=== PATIENT | female | born 1955 | race Caucasian/White ===

== ENCOUNTER 2017-03-26 14:22 | Inpatient (IN) | payer MEDICARE ==
[~2017-03-26] VITALS: Ht 172.7 cm; Wt 82.3 kg
[2017-03-26 14:24] VITALS: BP 126/80; PULSE 83; RESP 16; TEMP 98.8; O2SAT 97
--- NOTE | 2017-03-26 14:35 | PD ---
Physical Exam Time Seen by Provider: 14:32 Narrative 61 y/o female presents for evaluation of L foot pain for 2 weeks, seen by her coater operator in [place] and sent here. Told to come here to be evaluated by Dr. Kessler for "poor circulation." Vital signs reviewed. Seen at triage desk. Awaiting bed placement. Data Data Last Documented VS Vital Signs Date Time Temp Pulse Resp B/P Pulse Ox O2 Delivery O2 Flow Rate FiO2 03/26/17 14:24 98.8 83 16 126/80 97 MDM Medical Record Reviewed: Yes Supervised Visit with JG: Yovani Comer March 26, 2017 14:35
[2017-03-26] MEDS ORDERED: SITA50 PO (15:20)
[2017-03-26] MEDS ORDERED: PROM25TA5 PO (15:29)
[2017-03-26] MEDS ORDERED: JANU50TA8 PO (15:29)
[2017-03-26] MEDS ORDERED: GABA600T PO (15:29)
[2017-03-26] MEDS ORDERED: SODIUM CHLORIDE 0.9% FLUSH 10 ML FLUSH IVF PRN (15:30)
--- NOTE | 2017-03-26 15:37 | PD ---
HPI Chief Complaint: Skin Problem Time Seen by Provider: 15:12 Travel History International Travel<30 days: No Contact w/Intl Traveler<30days: No Traveled to known affect area: No History of Present Illness HPI Patient comes in at the advice of her private inquiry agent in [place] for evaluation left foot wound has been getting progressively worse over the past couple weeks. Patient states she is having pressure-like pain in her toes and her left heel. Pain making it difficult for her to walk. Denies any radiation of the pain. Patient states that her vascular surgeon told her that the next step for her would be amputation patient is wanting to avoid this. Patient was sent here for evaluation by Dr. Kessler. Denies any fevers, nausea, vomiting, diarrhea, chest pain, shortness of breath, or abdominal pain. Patient states she's been using Neosporin and antifungal meds with no improvement of her symptoms. PFSH Past Medical History Anxiety: Yes Cardiac Catheterization: Yes (card stent) Diabetes: Yes Patient Takes Glucophage: No Endocrine: Yes Medical other: Yes (2 strokes) Neurologic: Yes ?: Not Tubal Ligation: Yes Past Surgical History Abdominal Surgery: Yes (gallbladder removed) Section: Yes Other Surgery: Yes (thyroid sx) Social History Alcohol Use: No Tobacco Use: No Substance Use: No Allergies-Medications (Allergen,Severity, Reaction): Coded Allergies: Demerol (Verified Allergy, Severe, VOMITING, 03/26/17) Morphine (Verified Allergy, Severe, VOMITING, 03/26/17) Percocet (Verified Allergy, Severe, RASH, 03/26/17) Vicodin (Verified Allergy, Severe, VOMITING, 03/26/17) Reported Meds & Prescriptions Reported Meds & Active Scripts Active Reported Tramadol Hydrochloride (Tramadol HCl) 50 Mg Tab 50 Mg PO Q6-8HRS Iron (Ferrous Sulfate) 325 Mg Tab 324 Mg PO BID Take after a meal. Carvedilol 3.125 Mg Tab 3.125 Mg PO BID Glimepiride 2 Mg Tab 2 Mg PO BID Take with breakfast or first main meal Lisinopril-Hctz 10-12.5 Mg Tab 1 Tab PO DAILY Escitalopram (Escitalopram Oxalate) 20 Mg Tab 20 Mg PO DAILY Warfarin 7.5 Mg Tab 7.5 Mg PO DAILY Atorvastatin (Atorvastatin Calcium) 40 Mg Tab 40 Mg PO HS Pantoprazole (Pantoprazole Sodium) 40 Mg Tab 40 Mg PO DAILY Phenergan (Promethazine HCl) 25 Mg Tab 25 Mg PO DAILY Gabapentin 600 Mg Tab 600 Mg PO TID Janumet (Sitagliptin-Metformin) 50-1,000 Mg Tab 1 Tab PO BID Review of Systems Except as stated in HPI: all other systems reviewed are Neg Physical Exam Narrative GENERAL: Well-developed, overly nourished, in no acute distress, and non-ill appearing. SKIN: Erythematous over left great toe, second and third digit. He reports tenderness to palpation. There is no crepitus proximal forearm. There is scant drainage noted. Decreased capillary refill bilateral toes. Decreased dorsal pulses left using Doppler. HEAD: Atraumatic. Normocephalic. EYES: Pupils equal and round. EOMI. No scleral icterus. No injection or drainage. ENT: No nasal bleeding or discharge. Mucous membranes pink and moist. NECK: Trachea midline. Supple. No nuclear rigidity. RESPIRATORY: No accessory muscle use. No respiratory distress. MUSCULOSKELETAL: No obvious deformities. No clubbing. No cyanosis. No edema. Full range of motion. NEUROLOGICAL: Awake and alert. No obvious cranial nerve deficits. Motor grossly within normal limits. Normal speech. PSYCHIATRIC: Appropriate mood and affect; insight and judgment normal. Data Data Last Documented VS Vital Signs Date Time Temp Pulse Resp B/P Pulse Ox O2 Delivery O2 Flow Rate FiO2 03/26/17 16:18 96 Room Air 03/26/17 14:24 98.8 83 16 126/80 Orders Electrocardiogram (03/26/17 15:26) Complete Blood Count With Diff (03/26/17 15:26) Comprehensive Metabolic Panel (03/26/17 15:26) Magnesium (Mg) (03/26/17 15:26) Prothrombin Time / Inr (Pt) (03/26/17 15:26) Act Partial Throm Time (Ptt) (03/26/17 15:26) Chest, Single Ap (03/26/17 15:26) Ecg Monitoring (03/26/17 15:26) Iv Access Insert/Monitor (03/26/17 15:26) Oximetry (03/26/17 15:26) Oxygen Administration (03/26/17 15:26) Sodium Chloride 0.9% Flush (Ns Flush) (03/26/17 15:30) Wound Culture And Gram Stain (03/26/17 15:33) Consult Vascular Surgery (03/26/17 ) (Hub Use Only)Inp Phy Cons/Ref (03/26/17 ) Arterial Segmt Dopp Ltd Brigitte (03/26/17 ) Admit Order (Ed Use Only) (03/26/17 17:11) Us Venous Mapping Low Ext Bila (03/26/17 ) Us Venous Mapping Up Ext Bilat (03/26/17 ) Us Leg Venous Doppler Bilat (03/26/17 ) Us Arm Venous Doppler Bilat (03/26/17 ) Labs Laboratory Tests Test 03/26/17 16:30 White Blood Count 9.4 TH/MM3 Red Blood Count 4.67 MIL/MM3 Hemoglobin 10.3 GM/DL Hematocrit 32.3 % Mean Corpuscular Volume 69.1 FL Mean Corpuscular Hemoglobin 22.1 PG Mean Corpuscular Hemoglobin 32.0 % Concent Red Cell Distribution Width 20.3 % Platelet Count 367 TH/MM3 Mean Platelet Volume 10.3 FL Neutrophils (%) (Auto) 63.9 % Lymphocytes (%) (Auto) 24.6 % Monocytes (%) (Auto) 8.7 % Eosinophils (%) (Auto) 1.6 % Basophils (%) (Auto) 1.2 % Neutrophils # (Auto) 6.0 TH/MM3 Lymphocytes # (Auto) 2.3 TH/MM3 Monocytes # (Auto) 0.8 TH/MM3 Eosinophils # (Auto) 0.1 TH/MM3 Basophils # (Auto) 0.1 TH/MM3 CBC Comment AUTO DIFF Prothrombin Time 13.1 SEC Prothromb Time International 1.2 RATIO Ratio Activated Partial 27.1 SEC Thromboplast Time Sodium Level 138 MEQ/L Potassium Level 3.9 MEQ/L Chloride Level 102 MEQ/L Carbon Dioxide Level 28.5 MEQ/L Anion Gap 8 MEQ/L Blood Urea Nitrogen 11 MG/DL Creatinine 1.07 MG/DL Estimat Glomerular Filtration 52 ML/MIN Rate Random Glucose 84 MG/DL Calcium Level 8.7 MG/DL Magnesium Level 2.3 MG/DL Total Bilirubin 0.3 MG/DL Aspartate Amino Transf 14 U/L (AST/SGOT) Alanine Aminotransferase 14 U/L (ALT/SGPT) Alkaline Phosphatase 101 U/L Total Protein 7.3 GM/DL Albumin 3.1 GM/DL MDM Medical Decision Making Medical Screen Exam Complete: Yes Emergency Medical Condition: Yes Interpretation(s) EKG reviewed by Dr. Marin shows sinus rhythm with ventricular rate of 65. No STEMI. Differential Diagnosis Arterial occlusion, PAD, wound check, wound infection, other Narrative Course Patient was seen exam. Discussed patient with Dr. Kessler. Initial laboratory and radiological studies were obtained and reviewed. Discussed patient with Dr. Marin, who is in agreement with plan of care and disposition. Discussed all findings and plan care of patient, who was agreeable for admission. All questions were answered. Patient was stable throughout her ER stay. Physician Communication Physician Communication [address] Kessler, states he'll evaluate patient in the emergency department. 1550 Dr. Kessler evaluated patient recommends and patient admitted to medicine, nothing by mouth after midnight, and for Angiocath tomorrow. [address] Jason, who is agreeable to admit the patient. Diagnosis Primary Impression: PAD (peripheral artery disease) Admitting Information Admitting Physician Requests: Admit Condition: Stable Wojciech Bradford March 26, 2017 15:37
[2017-03-26] MEDS ORDERED: PANT40TA3 PO (15:46)
[2017-03-26] MEDS ORDERED: ATOR40TA16 PO (15:46)
[2017-03-26] MEDS ORDERED: ESCI20TA PO (15:54)
[2017-03-26] MEDS ORDERED: TRAM-492 PO (15:54)
[2017-03-26] MEDS ORDERED: LISI10TA PO (15:54)
[2017-03-26] MEDS ORDERED: CARV3.12 PO (15:54)
[2017-03-26] MEDS ORDERED: WARF-21 PO (15:54)
[2017-03-26] MEDS ORDERED: FERR1TAB36 PO (15:54)
[2017-03-26] MEDS ORDERED: GLIM2TAB PO (15:54)
[2017-03-26 16:18] VITALS: O2SAT 96
--- NOTE | 2017-03-26 16:21 | PD.VS.CON ---
History of Present Illness Chief Complaint: L LE wounds, PAD, pain Consult Requested by: ED History of Present Illness 61 yo lady w/ h/o PAD who initially had claudication years ago but that progressed and she underwent LLE bypass several years ago Over past weeks she has had worsening pain of her LEFT foot and wounds. She was seen by her vascular surgeon who recommended amputation and she went to her gyro compass tester, Dr. Omega Severino, who sent her to ED. She is able to ambulate but has pain with pressure on the heel. She denies fever or chills. Past/Family/Social History Past Medical History PAD CAD s/p stent and h/o [place] (she was told but no recollection) CVA 2005 with no residual deficit anemia when on plavix but had thorough GI w/u that was negative and now maintained on coumadin DM HTN neuropathy Past Surgical History thyroid resection eddie BTL KATERYNA L LE bypass with prosthetic Home Medications Reported Medications Tramadol HCl (Tramadol Hydrochloride)50 Mg Tab50 Mg PO q6-8hrs 03/26/17 Ferrous Sulfate (Iron)325 Mg Rny000 Mg PO BID Ref 0 Take after a meal. 03/26/17 Carvedilol 3.125 Mg Tab3.125 Mg PO BID #60 TAB Ref 0 03/26/17 Glimepiride 2 Mg Tab2 Mg PO BID #30 TAB Ref 0 Take with breakfast or first main meal 03/26/17 Lisinopril-Hctz 10-12.5 Mg Tab1 Tab PO DAILY #30 TAB Ref 0 03/26/17 Escitalopram 20 Mg Tab20 Mg PO DAILY #30 TAB Ref 0 03/26/17 Warfarin 7.5 Mg Tab7.5 Mg PO DAILY #30 TAB Ref 0 03/26/17 Atorvastatin 40 Mg Tab40 Mg PO HS #30 TAB Ref 0 03/26/17 Pantoprazole 40 Mg Tab40 Mg PO DAILY #30 TAB Ref 0 03/26/17 Promethazine (Phenergan)25 Mg Tab25 Mg PO DAILY #1 TAB Ref 0 03/26/17 Gabapentin 600 Mg Pqv466 Mg PO TID #90 TAB Ref 0 03/26/17 Sitagliptin-Metformin (Janumet)50-1,000 Mg Tab1 Tab PO BID #60 TAB Ref 0 03/26/17 Coded Allergies: Demerol (Verified Allergy, Severe, VOMITING, 03/26/17) Morphine (Verified Allergy, Severe, VOMITING, 03/26/17) Percocet (Verified Allergy, Severe, RASH, 03/26/17) Vicodin (Verified Allergy, Severe, VOMITING, 03/26/17) Review of Systems Constitutional: DENIES: Fever, Night Sweats Cardiovascular: COMPLAINS OF: Claudication, DENIES: Chest pain, Syncope Gastrointestinal: COMPLAINS OF: Diarrhea, Vomiting, DENIES: Abdominal pain Genitourinary: COMPLAINS OF: Urinary frequency Musculoskeletal: COMPLAINS OF: Joint pain Physical Exam Vitals/I&O Date Time Temp Pulse Resp B/P Pulse Ox O2 Delivery O2 Flow Rate FiO2 03/26/17 14:24 98.8 83 16 126/80 97 Neuro: awake, alert, no distress, JAQUEZ, CN intact HEENT: NC/AT Neck: no JVD; lower midline neck incision anterior healed Heart: reg rate, no M Lungs: clear B Abdomen: soft, NT; healed lower midline incision Vascular: weak L femoral pulse ? 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 I had a long talk with her and her and have outlined a plan for attempted limb salvage this hospitalization. 1. IVÁN, UE/LE vein survey - I will order these 2. NPO after MN with MIVF; plan for L LE angiogram tomorrow. I explained to the patient that this will purely be diagnostic 3. Reverse coumadin (check INR) until INR <1.5 4. Plan for L groin reconstruction and re-do distal bypass early next week 5. CV risk factor modification: ASA, statin, beta marisel; glucose control 6. Check A1c 7. Probably needs antibiotics for diabetic cellulitis Thanks for consulting me. The patient and her agree with treatment plan as outlined. Abram Kessler MD FACS visual merchandise manager [facility] - Heart and Vascular Surgery at [facility] [phone] Abram Kessler MD March 26, 2017 16:21
[2017-03-26 16:50] LABS: BASOPHIL # 0.1 TH/MM3 (0-0.2); BASOPHIL % 1.2 % (0.0-2.0); EOSINOPHIL # 0.1 TH/MM3 (0-0.4); EOSINOPHIL % 1.6 % (0.0-4.0); HEMATOCRIT 32.3 % (35.0-46.0); LYMPH % 24.6 % (9.0-44.0); LYMPHOCYTE # 2.3 TH/MM3 (1.0-4.8); MEAN CELL VOLUME 69.1 FL (80.0-100.0); MEAN CORPUSCULAR HEMOGLOBIN 22.1 PG (27.0-34.0); MONO % 8.7 % (0.0-8.0); NEUT % 63.9 % (16.0-70.0); PLATELET COUNT 367 TH/MM3 (150-450); RED BLOOD COUNT 4.67 MIL/MM3 (4.00-5.30); RED CELL DISTRIBUTION WIDTH 20.3 % (11.6-17.2); WHITE BLOOD COUNT 9.4 TH/MM3 (4.0-11.0)
[2017-03-26 17:00] LABS: HEMO FLAGS AUTO DIFF
[2017-03-26 17:01] LABS: APTT (PATIENT) 27.1 SEC (24.3-30.1); INTERNATIONAL NORMALIZED RATIO 1.2 RATIO; PROTHROMBIN TIME - PATIENT 13.1 SEC (9.8-11.6)
--- NOTE | 2017-03-26 17:05 | RADRPT ---
EXAM DATE/TIME: 03/26/2017 15:58 [facility] COMPARISON: No previous studies available for comparison. INDICATIONS : Evaluate for pneumonia, pneumothorax, or communicable diseases. MEDICAL HISTORY : None. SURGICAL HISTORY : Cardiac stent. ENCOUNTER: Initial ACUITY: 1 day PAIN SCORE: 0/10 LOCATION: Chest FINDINGS: There is a tiny pulmonary nodule within the right upper lung field which is indeterminate. Outpatien t CT of the chest may be helpful for further evaluation of this finding if clinically indicated. Min imal streakiness is noted within the left lung base consistent with possible atelectasis. The heart is normal. The pulmonary vascular pattern is also normal. CONCLUSION: 1. Tiny pulmonary nodule within the right upper lung field which is indeterminate. Outpatient CT of the chest may be helpful for further evaluation of the finding if clinically indicated. 2. Minimal streakiness within the left lung base consistent with possible atelectasis. 3. Degenerative changes throughout the thoracic spine. Abram Marie MD on March 26, 2017 at 16:58 Board Certified Radiologist. This report was verified electronically.
[2017-03-26 17:20] LABS: ANION GAP 8 MEQ/L (5-15); AST (GOT) 14 U/L (15-37); BICARBONATE 28.5 MEQ/L (21.0-32.0); BLOOD UREA NITROGEN 11 MG/DL (7-18); CHLORIDE 102 MEQ/L (98-107); GLOMERULAR FILTRATION RATE 52 ML/MIN (>89); MAGNESIUM 2.3 MG/DL (1.5-2.5); POTASSIUM 3.9 MEQ/L (3.5-5.1); SODIUM (NA) 138 MEQ/L (136-145)
[2017-03-26 17:23] LABS: ALKALINE PHOSPHATASE 101 U/L (45-117); ALT (GPT) 14 U/L (10-53); TOTAL BILIRUBIN ADULT 0.3 MG/DL (0.2-1.0)
[2017-03-26] MEDS ORDERED: SODIUM CHLORIDE 0.9% FLUSH 10 ML FLUSH IV FLUSH PRN (17:45)
[2017-03-26] MEDS ORDERED: ACETAMINOPHEN 325 MG TAB PO PRN (17:45)
--- NOTE | 2017-03-26 17:57 | HHI.HP ---
[facility] Non-Staff Admission Diagnosis severe peripheral artery disease Diagnoses: Chief Complaint: Left foot pain Travel History International Travel<30 Days: No Contact w/Intl Traveler <30 Da: No Traveled to Known Affected Are: No History of Present Illness 61-year-old female with a past medical history of PAD, CAD, CVA, DM, HTN, GERD, neuropathy, HLD, depression, PE, DVT who was sent by her voltage tester for PAD. The patient has an extensive history of left lower extremity vascular disease including stent placement and bypass. She states that she is having claudication symptoms in her left lower extremity for quite some time. She states that over the past 2 weeks she's been noticing skin peeling on her left foot. She complains of pain in her heel and the ball of her foot when she tries to bear weight. She has noticed some mild swelling and erythema on the sole of her foot. She denies any fevers or chills. Her voltage tester referred her to [place] to be evaluated by Dr. Kessler with vascular surgery. Vascular surgery is planning on angiogram tomorrow. She has peripheral neuropathy with numbness in her feet. The patient denies any lightheadedness, dizziness, vision changes, headache, chest pain, shortness of breath, nausea, vomiting, diarrhea, constipation, dysuria or urinary frequency. The patient has a history of DVT and was diagnosed with PE in November and has been on Coumadin. Review of Systems Except as stated in HPI: all other systems reviewed are Neg The patient had a recent hospitalization 2 weeks ago for UTI and diarrhea Past Family Social History Past Medical History Peripheral arterial disease Coronary artery disease CVA 2 in 2005 Hypertension Hyperlipidemia Peripheral neuropathy Depression GERD PE/DVT Past Surgical History Right thyroid removal Cholecystectomy Coronary stenting Left lower extremity bypass and stenting Hysterectomy Reported Medications Tramadol Hydrochloride (Tramadol HCl) 50 Mg Tab 50 Mg PO Q6-8HRS Iron (Ferrous Sulfate) 325 Mg Tab 324 Mg PO BID Take after a meal. Carvedilol 3.125 Mg Tab 3.125 Mg PO BID Glimepiride 2 Mg Tab 2 Mg PO BID Take with breakfast or first main meal Lisinopril-Hctz 10-12.5 Mg Tab 1 Tab PO DAILY Escitalopram (Escitalopram Oxalate) 20 Mg Tab 20 Mg PO DAILY Warfarin 7.5 Mg Tab 7.5 Mg PO DAILY Atorvastatin (Atorvastatin Calcium) 40 Mg Tab 40 Mg PO HS Pantoprazole (Pantoprazole Sodium) 40 Mg Tab 40 Mg PO DAILY Phenergan (Promethazine HCl) 25 Mg Tab 25 Mg PO DAILY Gabapentin 600 Mg Tab 600 Mg PO TID Janumet (Sitagliptin-Metformin) 50-1,000 Mg Tab 1 Tab PO BID Allergies: Coded Allergies: Demerol (Verified Allergy, Severe, VOMITING, 03/26/17) Morphine (Verified Allergy, Severe, VOMITING, 03/26/17) Percocet (Verified Allergy, Severe, RASH, 03/26/17) Vicodin (Verified Allergy, Severe, VOMITING, 03/26/17) Active Ordered Medications Current Medications Medications (Trade) Dose Ordered Sig/Mustapha Route Start Time Stop Time Status Last Admin (NS Flush) 2 ml UNSCH PRN IVF 03/26/17 15:30 (Lipitor) 40 mg HS PO 03/26/17 21:00 UNV (Coreg) 3.125 mg BID PO 03/26/17 21:00 UNV (Lexapro) 20 mg DAILY PO 03/27/17 09:00 UNV (Ferrous Sulfate) 324 mg BID PO 03/26/17 21:00 UNV (Neurontin) 600 mg TID PO 03/26/17 18:00 UNV (Amaryl) 2 mg BID PO 03/26/17 21:00 UNV (Protonix) 40 mg DAILY PO 03/27/17 09:00 UNV Non-Formulary Medication 1 tab 1 tab DAILY PO 03/27/17 09:00 UNV (NS 1000 ml Inj) 1,000 ml @ 70 mls/hr [id number] IV 03/26/17 17:43 UNV (NS Flush) 2 ml UNSCH PRN IV FLUSH 03/26/17 17:45 UNV (NS Flush) 2 ml BID IV FLUSH 03/26/17 21:00 UNV (Tylenol) 650 mg Q4H PRN PO 03/26/17 17:45 UNV (Tylenol) 650 mg Q6H PRN PO 03/26/17 17:45 UNV (Ultram) 50 mg Q6H PRN PO 03/26/17 17:45 UNV (Zofran Inj) 4 mg Q6H PRN IVP 03/26/17 18:00 UNV (Milk Of Magnesia Liq) 30 ml Q12H PRN PO 03/26/17 18:00 UNV (D50w (Vial) Inj) 25 ml UNSCH PRN IV PUSH 03/26/17 18:00 UNV (Glucagon Inj) 1 mg UNSCH PRN OTHER 03/26/17 18:00 UNV Family History Father had CABG and diabetes Social History Quit smoking in November after 40 years Denies any alcohol or drug use Physical Exam Vital Signs Vital Signs Date Time Temp Pulse Resp B/P Pulse Ox O2 Delivery O2 Flow Rate FiO2 03/26/17 16:18 96 Room Air 03/26/17 16:18 96 Room Air 03/26/17 14:24 98.8 83 16 126/80 97 Physical Exam GENERAL: Well-developed well-nourished. In no acute distress. SKIN: Warm and dry. Left foot with erythema of the toes with superficial skin peeling, erythema the heel. HEENT: Normocephalic. Pupils equal and round. Mucous membranes pink and moist. CARDIOVASCULAR: Regular rate and rhythm. No murmur appreciated. RESPIRATORY: No accessory muscle use. Clear to auscultation. Breath sounds equal bilaterally. GASTROINTESTINAL: Abdomen soft, non-tender, nondistended. Bowel sounds x4. MUSCULOSKELETAL: Left foot as above. Mild swelling of the left foot. Nonpalpable pulses in the left foot, foot warm. Faint DP pulse on the right. No clubbing or cyanosis. No edema. NEUROLOGICAL: Awake and alert. No focal neurological deficits. Moves upper and lower extremities spontaneously. Normal speech. PSYCHIATRIC: Appropriate mood and affect; insight and judgment normal. Laboratory Laboratory Tests Test 03/26/17 16:30 White Blood Count 9.4 Red Blood Count 4.67 Hemoglobin 10.3 Hematocrit 32.3 Mean Corpuscular Volume 69.1 Mean Corpuscular Hemoglobin 22.1 Mean Corpuscular Hemoglobin 32.0 Concent Red Cell Distribution Width 20.3 Platelet Count 367 Mean Platelet Volume 10.3 Neutrophils (%) (Auto) 63.9 Lymphocytes (%) (Auto) 24.6 Monocytes (%) (Auto) 8.7 Eosinophils (%) (Auto) 1.6 Basophils (%) (Auto) 1.2 Neutrophils # (Auto) 6.0 Lymphocytes # (Auto) 2.3 Monocytes # (Auto) 0.8 Eosinophils # (Auto) 0.1 Basophils # (Auto) 0.1 CBC Comment AUTO DIFF Prothrombin Time 13.1 Prothromb Time International 1.2 Ratio Activated Partial 27.1 Thromboplast Time Sodium Level 138 Potassium Level 3.9 Chloride Level 102 Carbon Dioxide Level 28.5 Anion Gap 8 Blood Urea Nitrogen 11 Creatinine 1.07 Estimat Glomerular Filtration 52 Rate Random Glucose 84 Calcium Level 8.7 Magnesium Level 2.3 Total Bilirubin 0.3 Aspartate Amino Transf 14 (AST/SGOT) Alanine Aminotransferase 14 (ALT/SGPT) Alkaline Phosphatase 101 Total Protein 7.3 Albumin 3.1 Date/Time Procedure Status Source Growth 03/26/17 15:46 Gram Stain Received Wound Toe Pending 03/26/17 15:46 Wound Culture Received Wound Toe Pending Result Diagram: 03/26/17 1630 03/26/17 1630 Imaging Last Impressions Chest X-Ray 03/26/17 1526 Signed Impressions: Service Date/Time: Sunday, March 26, 2017 15:58 - CONCLUSION: 1. Tiny pulmonary nodule within the right upper lung field which is indeterminate. Outpatient CT of the chest may be helpful for further evaluation of the finding if clinically indicated. 2. Minimal streakiness within the left lung base consistent with possible atelectasis. 3. Degenerative changes throughout the thoracic spine. Abram Marie MD Assessment and Plan Assessment and Plan 61-year-old female with a past medical history of PAD, CAD, CVA, DM, HTN, GERD, neuropathy, HLD, depression, PE, DVT who was sent by her voltage tester for PAD and vascular evaluation Acute on chronic LLE PAD: Vascular surgery consulted, appreciate recommendations and management. Nothing by mouth after midnight, IVF while nothing by mouth. Continue pain control with tramadol. Empiric IV Ancef for possible overlying cellulitis. Continue statin. History of recent PE on chronic anticoagulation: On Coumadin with subtherapeutic INR 1.2. Hold Coumadin for now for vascular procedure tomorrow. Heparin gtt for now until Coumadin is resumed. Diabetes mellitus: Chronic, stable. Hold home metformin. Monitor Accu-Cheks. Current with SSI. CAD/HTN: Chronic, stable. Continue home carvedilol, statin, lisinopril/HCTZ. Microcytic anemia: Likely chronic iron deficiency anemia on home iron supplementation, continue. Follow up CBC. Other chronic medical conditions include neuropathy, GERD, depression: Stable at this time and will continue home medications as indicated. DVT prophylaxis: Heparin GTT Discussed Condition With Patient with at bedside, ED RN, Dr. Jason Attending Statement 61 years old female History of PVD worsening foot pain and wounds dry wounds with mild erythema past week- sent over here by her voltage tester for vascular evaluation multiple comorbidities- HTN, DM, hyperlipidemia, CKI ;left foot - some dry wounds, mild cellulitis, warm Vascular surgery will be ff along with us- work up in progress IV antibiotics Faisal Flowers March 26, 2017 17:57 Kamini Jason MD March 26, 2017 19:14 Faisal Flwoers March 26, 2017 17:57 Kamini Jason MD March 26, 2017 19:14
[2017-03-26] MEDS ORDERED: GLUCAGON 1 MG/ML VIAL OTHER PRN (18:00)
[2017-03-26] MEDS ORDERED: ONDANSETRON HCL 4 MG/2 ML VIAL IVP PRN (18:00)
[2017-03-26] MEDS ORDERED: DEXTROSE 50% IN WATER 50 ML VIAL(D50) IV PUSH PRN (18:00)
[2017-03-26] MEDS ORDERED: MAGNESIUM HYDROXIDE SUSP 30 ML CUP PO PRN (18:00)
[2017-03-26 18:15] VITALS: BP 160/74; PULSE 68; RESP 16; O2SAT 97
[2017-03-26] MEDS: GABAPENTIN 300 MG CAP PO SCH (18:53)
[2017-03-26] MEDS: SODIUM CHLOR 0.9% 1000 ML INJ 1,000 ML IV SCH (18:53)
[2017-03-26] MEDS: HEPARIN-D5W INJ 250 ML IV SCH (18:54)
[2017-03-26 19:05] LABS: OVALOCYTES 1+ (NORMAL); SCAN/DIFF AUTO DIFF CONFIRMED
--- NOTE | 2017-03-26 19:55 | RADRPT ---
EXAM DATE/TIME: 03/26/2017 18:00 [facility] COMPARISON: No previous studies available for comparison. INDICATIONS : Arterial bypass. MEDICAL HISTORY : Stroke x2. Urinary frequency. Diabetes. Joint pain. Anxiety. SURGICAL HISTORY : Coronary artery stent. CABG Cholecystectomy. Cardiac cath. Tubal ligation. section. Thyroid surgery. ENCOUNTER: Initial ACUITY: 1 day PAIN SCORE: 5/10 LOCATION: Bilateral leg. GREATER SAPHENOUS VEIN THIGH: PROXIMAL: Right 6 mm Left Non-visualized MID: Right 3 mm Left Non-visualized DISTAL: Right 2 mm Left Non-visualized CALF: PROXIMAL: Right 2 mm Left Non-visualized MID: Right 3 mm Left Non-visualized DISTAL: Right 3 mm Left Non-visualized FINDINGS: The venous system of the lower extremities are patent by color Doppler imaging. Measurements of the leg veins (in mm) are listed above. CONCLUSION: Venous mapping study as described above. Mukesh Mike MD on March 26, 2017 at 19:53 Board Certified Radiologist. This report was verified electronically.
[2017-03-26 20:03] VITALS: BP 209/81; PULSE 70; RESP 18; O2SAT 99
[2017-03-26] MEDS: traMADol HCL 50 MG TAB PO PRN (20:03)
--- NOTE | 2017-03-26 20:08 | RADRPT ---
EXAM DATE/TIME: 03/26/2017 17:46 [facility] COMPARISON: No previous studies available for comparison. INDICATIONS : Arterial bypass. MEDICAL HISTORY : Stroke x2. Urinary frequency. Diabetes. Joint pain. Anxiety. SURGICAL HISTORY : Coronary artery stent.CABG Cholecystectomy.Cardiac cath. Tubal ligation. section. Thyroid agustin rgery. ENCOUNTER: Initial ACUITY: 1 day PAIN SCORE: 5/10 LOCATION: Bilateral leg. TECHNIQUE: Venous ultrasound of the left and right leg was performed from the inguinal ligament to the proximal calf. Real-time, color Doppler and spectral tracing, compression and augmentation techniques were us ed. FINDINGS: RIGHT LEG: There is normal compressibility of the deep venous system from the inguinal region to the proximal ca lf. No echogenic clot is seen in the lumen of the common femoral, femoral, popliteal, and posterior tibial veins. There is a normal response of the venous system to proximal and distal augmentation an d respiration. LEFT LEG: There is normal compressibility of the deep venous system from the inguinal region to the proximal ca lf. No echogenic clot is seen in the lumen of the common femoral, femoral, popliteal, and posterior tibial veins. There is a normal response of the venous system to proximal and distal augmentation an d respiration. An arterial graft is present and demonstrates no flow. CONCLUSION: 1. No evidence of deep venous thrombosis. 2. Left-sided arterial graft no flow. Mukesh Mike MD on March 26, 2017 at 20:05 Board Certified Radiologist. This report was verified electronically.
--- NOTE | 2017-03-26 20:09 | RADRPT ---
EXAM DATE/TIME: 03/26/2017 18:46 [facility] COMPARISON: No previous studies available for comparison. INDICATIONS : Arterial bypass. MEDICAL HISTORY : Stroke x2. Urinary frequency. Diabetes. Joint pain. Anxiety. SURGICAL HISTORY : Coronary artery stent. CABG Cholecystectomy. Cardiac cath. Tubal ligation. section. Thyroid surgery. ENCOUNTER: Initial ACUITY: 1 day PAIN SCORE: 5/10 LOCATION: Bilateral arm. CEPHALIC: ORIGIN: Right 2 mm Left 3 mm MID-ARM: Right 2 mm Left 2 mm ELBOW: Right 2 mm Left 2 mm FOREARM: Right 1 mm Left 1 mm WRIST: Right 1 mm Left 1 mm BASILIC: ORIGIN: Right 2 mm Left 3 mm MID-ARM: Right 2 mm Left 3 mm ELBOW: Right 2 mm Left 2 mm ARTERIES: BRACHIAL: Right 4 mm Left 4 mm ULNAR: Right 2 mm Left 2 mm RADIAL: Right 2 mm Left 1 mm VEINS: RADIAL: Right 1 mm Left 1 mm ULNAR: Right 1 mm Left 1 mm FINDINGS: The venous system of the upper extremities are patent by color Doppler imaging. Measurements of the arm veins (in mm) are listed above. CONCLUSION: Venous mapping study as described. Mukesh Mike MD on March 26, 2017 at 20:07 Board Certified Radiologist. This report was verified electronically.
--- NOTE | 2017-03-26 20:09 | RADRPT ---
EXAM DATE/TIME: 03/26/2017 18:30 [facility] COMPARISON: No previous studies available for comparison. INDICATIONS : Arterial bypass. MEDICAL HISTORY : Stroke x2. Urinary frequency. Diabetes. Joint pain. Anxiety. SURGICAL HISTORY : Coronary artery stent.CABG Cholecystectomy.Cardiac cath. Tubal ligation. section. Thyroid agustin rgery. ENCOUNTER: Initial ACUITY: 1 day PAIN SCORE: 5/10 LOCATION: Bilateral arm. FINDINGS: RIGHT UPPER EXTREMITY: There is spontaneous flow documented in the brachial, basilic, cephalic, axillary, and subclavian vei ns. The vessels are compressible and augmentation response is documented. No filling defects are se en. The flow is phasic with respiration. Direction of flow in the jugular vein is caudal. LEFT UPPER EXTREMITY: There is spontaneous flow documented in the brachial, basilic, cephalic, axillary, and subclavian vei ns. The vessels are compressible and augmentation response is documented. No filling defects are se en. The flow is phasic with respiration. Direction of flow in the jugular vein is caudal. CONCLUSION: Negative exam with no evidence of deep venous thrombosis. Mukesh Mike MD on March 26, 2017 at 20:06 Board Certified Radiologist. This report was verified electronically.
[2017-03-26] MEDS: ATORVASTATIN 40 MG TAB PO SCH (20:38)
[2017-03-26] MEDS: GLIMEPIRIDE 2 MG TAB PO SCH (20:38)
[2017-03-26] MEDS: CARVEDILOL 3.125 MG TAB PO SCH (20:38)
[2017-03-26] MEDS: FERROUS SULFATE 325 MG (65 MG ELEMENTAL IRON) TAB PO SCH (20:38)
[2017-03-26 20:42] VITALS: BP 160/68; PULSE 66; RESP 18; O2SAT 100
[2017-03-26] MEDS: INSULIN ASPART SUPPLEMENTAL SCALE SQ SCH (21:00)
[2017-03-26] MEDS: SODIUM CHLORIDE 0.9% FLUSH 10 ML FLUSH IV FLUSH SCH (21:10)
[2017-03-26 21:54] VITALS: BP 165/66; PULSE 61; RESP 18; TEMP 97.4; O2SAT 96
[2017-03-26 23:19] LABS: APTT (PATIENT) 30.1 SEC (24.3-30.1)
[2017-03-27] VITALS (8 sets, daily range): BP systolic 130–183; BP diastolic 60–82; PULSE 57–69; RESP 16–18; TEMP 96.5–97.9; O2SAT 94–97
[2017-03-27] MEDS: INSULIN ASPART SUPPLEMENTAL SCALE SQ SCH ×4 (06:02→21:00)
[2017-03-27 06:23] LABS: AUTOMATED NEUTROPHIL # 4.3 TH/MM3 (1.8-7.7); BASOPHIL # 0.1 TH/MM3 (0-0.2); EOSINOPHIL # 0.2 TH/MM3 (0-0.4); EOSINOPHIL % 2.1 % (0.0-4.0); HEMATOCRIT 27.8 % (35.0-46.0); LYMPH % 29.8 % (9.0-44.0); LYMPHOCYTE # 2.3 TH/MM3 (1.0-4.8); MEAN CELL VOLUME 70.4 FL (80.0-100.0); MEAN CORPUSCULAR HEMOGLOBIN 22.1 PG (27.0-34.0); MEAN CORPUSCULAR HGB CONC 31.4 % (32.0-36.0); MONO % 11.9 % (0.0-8.0); NEUT % 55.2 % (16.0-70.0); PLATELET COUNT 297 TH/MM3 (150-450); RED BLOOD COUNT 3.95 MIL/MM3 (4.00-5.30); WHITE BLOOD COUNT 7.8 TH/MM3 (4.0-11.0)
[2017-03-27 06:29] LABS: APTT (PATIENT) 28.2 SEC (24.3-30.1); INTERNATIONAL NORMALIZED RATIO 1.3 RATIO; PROTHROMBIN TIME - PATIENT 15.1 SEC (9.8-11.6)
[2017-03-27 06:39] LABS: HEMO FLAGS DIFF FINAL
[2017-03-27 06:59] LABS: ALKALINE PHOSPHATASE 83 U/L (45-117); ALT (GPT) 11 U/L (10-53); ANION GAP 6 MEQ/L (5-15); AST (GOT) 24 U/L (15-37); BICARBONATE 27.8 MEQ/L (21.0-32.0); BLOOD UREA NITROGEN 14 MG/DL (7-18); CHLORIDE 106 MEQ/L (98-107); GLOMERULAR FILTRATION RATE 51 ML/MIN (>89); SODIUM (NA) 140 MEQ/L (136-145); TOTAL BILIRUBIN ADULT 0.2 MG/DL (0.2-1.0)
[2017-03-27 07:08] LABS: POTASSIUM 4.4 MEQ/L (3.5-5.1)
[2017-03-27] MEDS: SODIUM CHLOR 0.9% 1000 ML INJ 1,000 ML IV SCH ×2 (08:48→23:06)
[2017-03-27] MEDS ORDERED: NON-FORMULARY DRUG (Lisinopril-Hctz 1 TAB) PO SCH (09:00)
[2017-03-27] MEDS: GLIMEPIRIDE 2 MG TAB PO SCH ×2 (09:00→17:32)
[2017-03-27 09:23] LABS: OVALOCYTES 1+ (NORMAL)
[2017-03-27 09:24] LABS: SCAN/DIFF AUTO DIFF CONFIRMED
[2017-03-27] MEDS: HYDROCHLOROTHIAZIDE 12.5 MG CAP PO SCH (10:27)
[2017-03-27] MEDS: CARVEDILOL 3.125 MG TAB PO SCH ×2 (10:27→21:39)
[2017-03-27] MEDS: LISINOPRIL 10 MG TAB PO SCH (10:27)
[2017-03-27] MEDS: PANTOPRAZOLE SOD 40 MG DELAYED RELEASE TAB PO SCH (10:27)
[2017-03-27] MEDS: GABAPENTIN 300 MG CAP PO SCH ×3 (10:27→17:32)
[2017-03-27] MEDS: ESCITALOPRAM OXALATE 20 MG TAB PO SCH (10:27)
[2017-03-27] MEDS: SODIUM CHLORIDE 0.9% FLUSH 10 ML FLUSH IV FLUSH SCH ×2 (10:28→21:00)
[2017-03-27] MEDS: FERROUS SULFATE 325 MG (65 MG ELEMENTAL IRON) TAB PO SCH ×2 (10:28→21:39)
[2017-03-27] MEDS: HEPARIN-D5W INJ 250 ML IV SCH ×2 (10:53→17:36)
[2017-03-27] MEDS ORDERED: IOHEXOL 350 MG/ML 100 ML BTL (for Cath Lab) OTHER ONE (11:58)
[2017-03-27] MEDS ORDERED: MIDAZOLAM HCL 2 MG/2 ML VIAL ONE (12:15)
--- NOTE | 2017-03-27 12:49 | HHI.PR ---
Immediate Post Op Note Procedure Date: March 27, 2017 Pre Op Diagnosis: PAD, L LE tissue loss, failed distal bypass Post Op Diagnosis: PAD, L LE tissue loss, failed distal bypass Surgeon: Abram Kessler Baker Apprentice(s): none Procedure: Aortogram w/ L LE angiogram Findings: 1. Occluded L CASH APPLICATION CLERK but patent profunda 2. Occluded L LE bypass 3. Occluded SFA/popliteal 4. Occluded PT/peroneal 5. Patent AT after genu Additional Information: Pt will be scheduled for L groin reconstruction (ilioprofunda bypass) amd LEFT leg bypass (fem-AT) Ok to resume heparin gtt at 1700 Complications: none apparent R groin sheath removed in lab intern Specimen(s) removed: none Estimated blood loss: 10mL Anesthesia: MAC Drains: None Patient to: Other (DOCU) Patient Condition: Good Date/Time of Procedure: SEE SURGICAL CARE RECORD Abram Kessler MD March 27, 2017 12:48
--- NOTE | 2017-03-27 12:50 | CATHPROC ---
[employer] HIS Report Study Information Study Number Scheduled Start Study Start [id number] 03/27/2017 Mar 27 2017 11:35AM Referring Institution Admit Source Facility Department 1 Emergency department [facility] - Physician Obstetrician Physician and Clinical Staff Initial Abram Kim Cold Press Loader Marcelo Huff,RN Other cathlab, cathlab Recorder Sam Guaman,RT(R) Scrub Jovi Lopez RCIS(BS) Procedures Performed Procedure Location (Site) Vessel Name Abdominal Angiogram Abd Aorta (A3) Aorta Abdominal Angiogram PELVIS Wire insertion Fem Art (right) Femoral Art Equipment Time Cold Press Loader Description Size Mfg Part Number Used/Scraped 11:43 ANGIO-DYNAMICS OMNI FLUSH 65CM CATHETER FR 4 [id number] Used 12:24 ANGIO-DYNAMICS OMNI FLUSH 65CM CATHETER FR 4 [id number] Used INTRODUCER SET, [id number]- 11:43 [employer] FR 5 Used MICROPUNCTURE, STIFFENED SC-NT-U-SST 11:43 The X Train INDUSTRIES PACK, CCL CUSTOM * [id number] Used 11:43 Nitronex MEDICAL PRESSURE TUBING 48" 48" [id number] Used 11:43 NAMIC TUBING, HIGH PRESSURE 20" 20" [id number] Used 12:26 NYCOMED OMNIPAQUE, 350 MG, 50ML 50ML [id number] Used 11:43 TERUMO MEDICAL SHEATH, FR4 TERUMO (10CM) FR 4 [id number] Used WIRE, ANGLED GLIDE .035 11:43 TERUMO MEDICAL/THAD 260CM [id number] Used 260CM History: Allergies Allergy Reaction Demerol VOMITING Morphine VOMITING Percocet RASH Vicodin VOMITING History: Risk Factors Hypertension Dyslipidemia Previous NH Previous Heart Failure Yes Yes No No Prior Valve Prior PCI Prior CABG Surgery No No No Cerebrovascular Peripheral Artery Chronic Lung On Dialysis Diabetes Disease Disease Disease No No Yes No No History: Stress Tests Stress or Imaging Studies Performed No History: Other Current Smoker No Medication Medication Total Dose (Bolus/Oral) Medication Total Dosage/Unit 1% XYLOCAINE 20 mL VERSED 2 mg Medications (Bolus/Oral) Medication Time Given Dosage/Unit Administered By Reason VERSED 03/27/2017 12:17:28 PM 2 mg Marcelo Huff 2 mg VERSHENRI given in lab by Marcelo Huff, RN via Peripheral IV. 1% XYLOCAINE 03/27/2017 12:20:21 PM 20 mL Abram Kessler 20 mL 1% XYLOCAINE given in lab by Abram Kessler in Right Groin via Subcutaneous. Initial Case Assessment Cardiovascular Edema Present Skin color Skin None Normal Warm Dry Circulatory - Right Pulses Dorsalis Pedis Posterior Tibial Femoral d d 2 Scale (0,1,2,3,4,d) Circulatory - Left Pulses Dorsalis Pedis Posterior Tibial Femoral d 0 0 Scale (0,1,2,3,4,d) Final Case Assessment Cardiovascular HR Rhythm 62 REG Edema Present Skin color Skin None Normal Warm Circulatory - Right Pulses Dorsalis Pedis Posterior Tibial Femoral d d 2 Scale (0,1,2,3,4,d) Circulatory - Left Pulses Dorsalis Pedis Posterior Tibial Femoral d 0 0 Scale (0,1,2,3,4,d) Circulatory - Lower Extremities Color Lower Right Normal Neurological State Oriented to time-place- Alert Moves all extremities person Respiration - General Respiration Rate SpO2 (%) (B/min) 20 99 Chronological Log Time Study Chronological Log 11:58:22 Patient arrived via Bed. 11:58:24 Patient Name, D.O.B, / Armband Verified By R.N. 11:58:25 Consent signed by the physician and the patient and verified by the Physician Obstetrician staff. 11:58:26 Pre-op and post- op instructions given; patient acknowledges understanding of instructions. 11:58:27 Verbal Stimulation=2 Physical Stimulation=2 Airway=2 Respiration=2 TOTAL=8. (0=absent, 1=li mited, 2=present) 11:58:37 MD arrived. 11:58:44 Presedation assessment performed by Physician Obstetrician RN. 11:59:01 Patient has been NPO for More than 6Hrs. 12:03:04 Raquel GUAMAN RECORDING Time Out. Correct patient, correct procedure,correct physician, ,power injector loaded with con trast with surgical team 12:05:57 present. Time Out Concurred by MD, individual staff and LIQUOR RUNNER in procedure Vitals capture started with the following parameters, Patient=Adult, Interval=5 min, Initial Pr mnhust=142 mmHg, 12:12:36 Deflation Rate=5 mmHg 12:13:55 HR=58 bpm, YQSO=613/85 mmhg, SpO2=98.0 %, Resp=21 B/min, Pain=0, Sheldon=10, Singh=2 Assessment: Initial Case, Edema=None, Color=Normal, Skin = Warm, Dry 12:17:11 Right Pulses: Omar Ped=d, Post Tib=d, Femoral=2 Left Pulses: Omar Ped=d, Post Tib=0, Femoral=0 12:17:28 2 mg VERSED given in lab by Marcelo Huff, RN via Peripheral IV. 12:18:23 HR=60 bpm, MPXV=652/92 mmhg, SpO2=99.0 %, Resp=14 B/min, Pain=0, Sheldon=10, Singh=2 12:19:14 Case Start 12:20:21 20 mL 1% XYLOCAINE given in lab by Abram Kessler in Right Groin via Subcutaneous. 12:22:39 Access site was Right Femoral Artery. with MP KIT 12:23:22 HR=62 bpm, PEOT=200/84 mmhg, SpO2=97.0 %, Resp=16 B/min, Pain=0, Sheldon=10, Singh=2 12:23:37 A WIRE, ANGLED GLIDE .035 260CM 260CM was inserted via Fem Art (right). 12:24:23 A SHEATH, FR4 TERUMO (10CM) FR 4 was advanced into the Fem Art (right) using the Percutaneo us technique. A OMNI FLUSH 65CM CATHETER FR 4 was advanced over a wire. OMNIPAQUE, 350 MG, 50ML 50ML was used for 12:25:23 injections. 12:26:22 Wire removed 12:27:02 Through a OMNI FLUSH 65CM CATHETER FR 4, The Abdominal Aorta was injected with 10 cc's of c ontrast. 12:27:37 Through a OMNI FLUSH 65CM CATHETER FR 4, The Abdominal Aorta was injected with 10 cc's of c ontrast. 12:28:05 A WIRE, ANGLED GLIDE .035 260CM 260CM was inserted via Fem Art (right). 12:28:19 HR=62 bpm, YDIK=990/81 mmhg, SpO1=595.0 %, Resp=15 B/min, Pain=0, Sheldon=10, Singh=2 12:29:40 Through a OMNI FLUSH 65CM CATHETER FR 4, The SFA (left) was injected with [address] 12:30:13 Through a OMNI FLUSH 65CM CATHETER FR 4, The Popliteal L (L10) was injected with 10 cc's of contrast. 12:30:34 Through a OMNI FLUSH 65CM CATHETER FR 4, The Peroneal (left) was injected with 12 cc's of c ontrast. 12:31:25 A WIRE, ANGLED GLIDE .035 260CM 260CM was inserted via Fem Art (right). 12:32:41 Catheter was removed Assessment: Final Case, HR=62 BPM, Rhythm=REG, Edema=None, Color=Normal, Skin = Warm Right Pulses: Omar Ped=d, Post Tib=d, Femoral=2 Left Pulses: Omar Ped=d, Post Tib=0, Femoral=0 12:32:50 Lower Right Extremities: Color=Normal Neurological: State=Alert, Ox3, JAQUEZ Respiration: Resp=20 B/min, SpO2=99 % 12:33:43 Catheter(s) removed without difficulty 12:33:44 Sheath removed; pressure applied to access site. Sergio LOPEZ 12:33:47 Case End 12:34:02 Sterile dressing applied to site 12:34:03 No case complications noted. 12:34:04 Cine recording checked. 12:34:07 HR=61 bpm, XWLZ=891/81 mmhg, SpO2=97.0 %, Resp=25 B/min, Pain=0, Sheldon=10, Singh=2 12:34:59 Bedside Report will be given. 12:35:18 Contrast Scanned 12:38:58 HR=62 bpm, HLON=837/86 mmhg, SpO2=96.0 %, Resp=20 B/min, Pain=0, Sheldon=10, Singh=2 12:43:24 HR=60 bpm, IHAW=865/87 mmhg, SpO2=97.0 %, Resp=22 B/min, Pain=0, Sheldon=10, Singh=2 12:48:23 HR=61 bpm, OXWG=527/84 mmhg, SpO2=96.0 %, Resp=18 B/min, Pain=0, Sheldon=10, Singh=2 12:49:49 HEMASTATIS ACHIEVED End Study - Contrast Media Used In Study Contrast Total Opened (mL) Total Used (mL) Total Wasted (mL) Omnipaque 25 25 0 End Study - Radiation Exposure Fluoro Time (minutes) 2.1 End Study - Sheaths Sheaths Pulled By Sheath Hold Time (min) Jovi Lopez End Study - Patient Disposition Complications Transferred To Interventional Outcome No Physician Obstetrician Holding No attempt made
--- NOTE | 2017-03-27 13:37 | MP ---
cc: RANDY KESSLER MD DATE OF SURGERY March 27, 2017 PREOPERATIVE DIAGNOSIS Left lower extremity critical limb ischemia, tissue loss and failed distal bypass. POSTOPERATIVE DIAGNOSIS Left lower extremity critical limb ischemia, tissue loss and failed distal bypass. PROCEDURE Aortogram with left lower extremity angiograms. ATTENDING SURGEON Randy Kessler MD ANESTHESIA Local with sedation. INDICATIONS Ms. Cao is a 61-year-old lady who has left lower extremity tissue loss and failed distal bypass. She was taken to the operating room for angiographic evaluation and treatment. There was no prior catheterization or angiogram available for my review. DESCRIPTION OF PROCEDURE Informed consent obtained was obtained from the patient. She was taken to the operating room and placed supine on the operating room table. An appropriate time-out was taken to identify the patient, the operative site and the planned procedure. The antibiotic administration was necessary as this is a clean procedure, without the planned implantation any foreign object. Everyone in the room agreed with the time-out and we proceeded. Her bilateral groins were prepped and draped and the right groin was anesthetized with 1% lidocaine. A 21-gauge micropuncture needle was used to access the right common femoral artery. This was exchanged using Seldinger technique for a micropuncture sheath through which a 0.025 Glidewire was introduced. The micropuncture sheath was exchanged for a 4-Czech sheath and a VCF catheter was placed over the wire into the sheath and the aortogram and pelvic arteriogram obtained. The Glidewire was reintroduced and navigated down to the left external iliac artery and the VCF catheter was advanced over this and left lower extremity arteriogram was obtained. The wire, catheter and sheath were removed and pressure used to obtain hemostasis. There were no complications. I was present and scrubbed for the entire procedure. INTERPRETATION OF IMAGES This patient has patent infrarenal aorta, common iliac arteries, hypogastric arteries and external iliac arteries. The patient's left common femoral artery is occluded as is the profunda. Christa-femoral collaterals off the distal external iliac artery constitute a profunda. The SFA is occluded and appears to have old stents. The popliteal artery is occluded. The posterior tibial artery and peroneal arteries are occluded. The anterior tibial artery is patent after the genu. MD HU Greene/SSB /12:54 PM /1:22 PM MTDMarco Antonio
[2017-03-27 15:35] LABS: APTT (PATIENT) 28.2 SEC (24.3-30.1)
--- NOTE | 2017-03-27 17:39 | HHI.PR ---
Subjective Remarks comfortable, mild discomfort foot Objective Vitals Vital Signs Date Time Temp Pulse Resp B/P Pulse Ox O2 Delivery O2 Flow Rate FiO2 03/27/17 16:14 97.4 65 18 172/76 97 03/27/17 14:35 97.4 65 18 177/69 97 03/27/17 13:38 94 21 03/27/17 13:07 92 Room Air 03/27/17 11:49 96.5 57 18 183/82 96 03/27/17 08:24 96.9 57 18 150/64 96 03/27/17 05:33 97.9 69 16 161/78 96 03/27/17 01:21 97.5 59 16 130/60 95 03/26/17 21:54 97.4 61 18 165/66 96 03/26/17 20:42 66 18 160/68 100 Room Air 03/26/17 20:03 70 18 99 Room Air 03/26/17 18:15 68 16 160/74 97 Room Air I/O 03/26/17 03/26/17 03/26/17 03/27/17 03/27/17 03/27/17 07:00 15:00 23:00 07:00 15:00 23:00 Intake Total 289 ml Output Total 250 ml Balance -250 ml 289 ml Intake IV Total 289 ml Output Urine Total 250 ml # Voids 1 1 1 # Bowel Movements 0 Result Diagram: 03/27/17 0557 03/27/17 0557 Imaging Last Impressions Chest X-Ray 03/26/17 1526 Signed Impressions: Service Date/Time: Sunday, March 26, 2017 15:58 - CONCLUSION: 1. Tiny pulmonary nodule within the right upper lung field which is indeterminate. Outpatient CT of the chest may be helpful for further evaluation of the finding if clinically indicated. 2. Minimal streakiness within the left lung base consistent with possible atelectasis. 3. Degenerative changes throughout the thoracic spine. Abram Marie MD Upper Extremity Ultrasound 03/26/17 0000 Signed Impressions: Service Date/Time: Sunday, March 26, 2017 18:30 - CONCLUSION: Negative exam with no evidence of deep venous thrombosis. Mukesh Mike MD Lower Extremity Ultrasound 03/26/17 0000 Signed Impressions: Service Date/Time: Sunday, March 26, 2017 17:46 - CONCLUSION: 1. No evidence of deep venous thrombosis. 2. Left-sided arterial graft no flow. Mukesh Mike MD Objective Remarks awake and alert, NAD anicteric lngs clear regular rhythm abdomen soft, nontender extremities- left foot mild erythema- improved, forefoot- mildly tender to touch ,dry wounds- heel moves all extremities equally Procedures /- aortogram with LE angiogram A/P Assessment and Plan 61 years old female History of PVD worsening foot pain and wounds dry wounds with mild erythema past week- sent over here by her nurse orthopedic for vascular evaluation multiple comorbidities- HTN, DM, hyperlipidemia, CKI Acute on chronic LLE PAD: Vascular surgery ff S/P aortogram with LLE angiogram Continue pain control with tramadol. Empiric IV Ancef for possible overlying cellulitis. Continue statin. On heparin drip restart at 1700 History of recent PE on chronic anticoagulation- Coumadin as OP. Heparin gtt for now until Coumadin is resumed. Diabetes mellitus: Chronic, stable. Hold home metformin- had angiogram done. Monitor Accu-Cheks. Current with SSI. CAD/HTN: Chronic, stable. Continue home carvedilol, statin, lisinopril/HCTZ.. BMP in am Acute Anemia on top of chronic Microcytic anemia: Likely chronic iron deficiency anemia on home iron supplementation, continue. H and H in am. Check iron studies no outward signs of bleeding. type and x 2 units standby. Other chronic medical conditions include neuropathy, GERD, depression: Stable at this time and will continue home medications as indicated. DVT prophylaxis: Heparin GTT Kamini Jason MD March 27, 2017 17:39
--- NOTE | 2017-03-27 18:32 | EKG ---
Date Performed: 03/26/2017 Time Performed: 16:23:21 PTAGE: 61 years EKG: Sinus rhythm MODERATE INTRAVENTRICULAR CONDUCTION DELAY NONSPECIFIC T-WAVE ABNORMALITY PROLONGED QT INTERVAL ABNO RMAL ECG NO PREVIOUS TRACING DOCTOR: Fabien Maguire Interpretating Date/Time 03/27/2017 18:29:07
[2017-03-27 19:25] LABS: FERRITIN 15 NG/ML (8-252); TRANSFERRIN IRON PROFILE 225 MG/DL (200-360)
[2017-03-27] MEDS: ATORVASTATIN 40 MG TAB PO SCH (21:39)
[2017-03-27] MEDS: traMADol HCL 50 MG TAB PO PRN (21:43)
[2017-03-28] VITALS (7 sets, daily range): BP systolic 119–176; BP diastolic 59–103; PULSE 55–64; RESP 18–20; TEMP 96.3–98.7; O2SAT 93–100
[2017-03-28 02:38] LABS: APTT (PATIENT) 29.5 SEC (24.3-30.1)
[2017-03-28] MEDS: INSULIN ASPART SUPPLEMENTAL SCALE SQ SCH ×4 (06:20→20:26)
[2017-03-28 08:31] LABS: APTT (PATIENT) 37.2 SEC (24.3-30.1)
[2017-03-28 08:39] LABS: HEMATOCRIT 30.9 % (35.0-46.0)
[2017-03-28 08:42] LABS: BICARBONATE 27.7 MEQ/L (21.0-32.0); POTASSIUM 3.9 MEQ/L (3.5-5.1)
[2017-03-28] MEDS: FERROUS SULFATE 325 MG (65 MG ELEMENTAL IRON) TAB PO SCH (08:45)
[2017-03-28] MEDS: ESCITALOPRAM OXALATE 20 MG TAB PO SCH (08:45)
[2017-03-28] MEDS: LISINOPRIL 10 MG TAB PO SCH (08:45)
[2017-03-28] MEDS: HYDROCHLOROTHIAZIDE 12.5 MG CAP PO SCH (08:45)
[2017-03-28] MEDS: GABAPENTIN 300 MG CAP PO SCH ×3 (08:45→17:15)
[2017-03-28] MEDS: PANTOPRAZOLE SOD 40 MG DELAYED RELEASE TAB PO SCH (08:45)
[2017-03-28] MEDS: GLIMEPIRIDE 2 MG TAB PO SCH ×2 (08:46→17:15)
[2017-03-28] MEDS: CARVEDILOL 3.125 MG TAB PO SCH ×2 (08:46→20:25)
[2017-03-28] MEDS: SODIUM CHLORIDE 0.9% FLUSH 10 ML FLUSH IV FLUSH SCH ×2 (08:46→20:25)
[2017-03-28] MEDS: traMADol HCL 50 MG TAB PO PRN ×2 (08:46→18:58)
--- NOTE | 2017-03-28 09:38 | HHI.PR ---
Subjective Remarks no complains of pain, fever or chills no foot pain complains Objective Vitals Vital Signs Date Time Temp Pulse Resp B/P Pulse Ox O2 Delivery O2 Flow Rate FiO2 03/28/17 07:52 98.1 60 18 139/69 96 03/28/17 04:00 97.1 61 20 119/59 96 03/28/17 00:00 97.5 63 20 176/103 93 03/27/17 20:18 97.0 64 18 176/78 95 03/27/17 16:14 97.4 65 18 172/76 97 03/27/17 14:35 97.4 65 18 177/69 97 03/27/17 13:38 94 21 03/27/17 13:07 92 Room Air 03/27/17 11:49 96.5 57 18 183/82 96 I/O 03/27/17 03/27/17 03/27/17 03/28/17 03/28/17 03/28/17 07:00 15:00 23:00 07:00 15:00 23:00 Intake Total 289 ml 1127 ml Output Total 400 ml Balance 289 ml 727 ml Intake Oral 240 ml IV Total 289 ml 700 ml Other 187 ml Output Urine Total 400 ml # Voids 1 1 2 # Bowel Movements 0 1 Result Diagram: 03/28/17 0715 03/28/17 0715 Imaging Last Impressions Chest X-Ray 03/26/17 1526 Signed Impressions: Service Date/Time: Sunday, March 26, 2017 15:58 - CONCLUSION: 1. Tiny pulmonary nodule within the right upper lung field which is indeterminate. Outpatient CT of the chest may be helpful for further evaluation of the finding if clinically indicated. 2. Minimal streakiness within the left lung base consistent with possible atelectasis. 3. Degenerative changes throughout the thoracic spine. Abram Marie MD Upper Extremity Ultrasound 03/26/17 0000 Signed Impressions: Service Date/Time: Sunday, March 26, 2017 18:30 - CONCLUSION: Negative exam with no evidence of deep venous thrombosis. Mukesh Mike MD Lower Extremity Ultrasound 03/26/17 0000 Signed Impressions: Service Date/Time: Sunday, March 26, 2017 17:46 - CONCLUSION: 1. No evidence of deep venous thrombosis. 2. Left-sided arterial graft no flow. Mukesh Mike MD Objective Remarks awake and alert, NAD anicteric lngs clear regular rhythm abdomen soft, nontender extremities- left foot erythema- almost resolved , heel- dry wounds/scab- no erythema moves all extremities equally Procedures 03/27- aortogram with LE angiogram A/P Assessment and Plan 61 years old female History of PVD worsening foot pain and wounds dry wounds with mild erythema past week- sent over here by her upper leather cutter for vascular evaluation multiple comorbidities- HTN, DM, hyperlipidemia, CKI Acute on chronic LLE PAD: Vascular surgery ff S/P aortogram with LLE angiogram Continue pain control with tramadol. Empiric IV Ancef for possible overlying cellulitis. Continue statin. On heparin drip History of recent PE on chronic anticoagulation- Coumadin as OP. Heparin gtt for now until Coumadin is resumed. Diabetes mellitus: Chronic, stable. Hold home metformin- had angiogram done. Monitor Accu-Cheks. Current with SSI. CAD/HTN: Chronic, stable. Continue home carvedilol, statin, lisinopril/HCTZ.. Acute Anemia on top of chronic Iron deficiency: Likely chronic iron deficiency anemia on home iron supplementation, continue. H and H in am. no outward signs of bleeding. type and x 2 units standby. Increase Iron to tid IV Iron for now while in house Other chronic medical conditions include neuropathy, GERD, depression: Stable at this time and will continue home medications as indicated. DVT prophylaxis: Heparin GTT Kamini Jason MD March 28, 2017 09:38
[2017-03-28] MEDS: IRON SUCROSE INJ 100 MG in SODIUM CHLORIDE 0.9% INJ 100 ML IV SCH (11:12)
[2017-03-28] MEDS ORDERED: FERROUS SULFATE 325 MG (65 MG ELEMENTAL IRON) TAB PO SCH (13:00)
--- NOTE | 2017-03-28 15:44 | RADRPT ---
EXAM DATE/TIME: 03/26/2017 00:00 [facility] COMPARISON: No previous studies available for comparison. INDICATIONS : Left foot Ulcer TECHNIQUE: Four-cuff ankle and brachial pressures were obtained. Pulse cuff waveform tracings of the ankles were recorded, and ankle-brachial indices were calculated. PRESSURES (mmHg): Brachial (arm): Right IV SITE Left 137 Ankle: Right 66 Left 21 IVÁN: Right 0.48 Left 0.15 TBI: Right 0.31 Left 0.00 TECH NOTE: Could not obtain left toe HUMBERTO Decker MR#: [id number] Exam DT/Desc[facility] BRACHIAL INDEX PULSED CUFF WAVEFORMS: Monophasic tracings on the right. Extremely low amplitude waveform at the left ankle. CONCLUSION: Significant PAD bilaterally, severe on the right, critical on the left. Damien Moralez MD on March 28, 2017 at 15:40 Board Certified Radiologist. This report was verified electronically.
[2017-03-28] MEDS: HEPARIN-D5W INJ 250 ML IV SCH (15:47)
[2017-03-28] MEDS ORDERED: WARFARIN SOD 10 MG TAB PO ONE (16:00)
[2017-03-28] MEDS: SODIUM CHLOR 0.9% 1000 ML INJ 1,000 ML IV SCH (17:16)
[2017-03-28] MEDS: ATORVASTATIN 40 MG TAB PO SCH (20:25)
[2017-03-28 23:37] LABS: APTT (PATIENT) 53.2 SEC (24.3-30.1)
[2017-03-29] VITALS (9 sets, daily range): BP systolic 105–167; BP diastolic 47–73; PULSE 55–93; RESP 18–20; TEMP 96.1–97.9; O2SAT 92–98
[2017-03-29] MEDS: INSULIN ASPART SUPPLEMENTAL SCALE SQ SCH ×4 (06:14→22:24)
[2017-03-29] MEDS: PANTOPRAZOLE SOD 40 MG DELAYED RELEASE TAB PO SCH (08:08)
[2017-03-29] MEDS: LISINOPRIL 10 MG TAB PO SCH (08:08)
[2017-03-29] MEDS: GLIMEPIRIDE 2 MG TAB PO SCH ×2 (08:08→18:23)
[2017-03-29] MEDS: GABAPENTIN 300 MG CAP PO SCH ×3 (08:08→18:24)
[2017-03-29] MEDS: HYDROCHLOROTHIAZIDE 12.5 MG CAP PO SCH (08:09)
[2017-03-29] MEDS: CARVEDILOL 3.125 MG TAB PO SCH ×2 (08:23→22:22)
[2017-03-29] MEDS: ESCITALOPRAM OXALATE 20 MG TAB PO SCH (08:23)
[2017-03-29 09:21] LABS: APTT (PATIENT) 37.1 SEC (24.3-30.1)
[2017-03-29 09:28] LABS: HEMATOCRIT 31.5 % (35.0-46.0); MEAN CELL VOLUME 70.1 FL (80.0-100.0); MEAN CORPUSCULAR HEMOGLOBIN 22.3 PG (27.0-34.0); MEAN CORPUSCULAR HGB CONC 31.8 % (32.0-36.0); PLATELET COUNT 328 TH/MM3 (150-450); RED BLOOD COUNT 4.49 MIL/MM3 (4.00-5.30); RED CELL DISTRIBUTION WIDTH 19.6 % (11.6-17.2); WHITE BLOOD COUNT 7.9 TH/MM3 (4.0-11.0)
[2017-03-29 09:31] LABS: REVIEW FLAG FINAL
[2017-03-29] MEDS: HEPARIN-D5W INJ 250 ML IV SCH (09:53)
[2017-03-29] MEDS: IRON SUCROSE INJ 100 MG in SODIUM CHLORIDE 0.9% INJ 100 ML IV SCH (11:00)
[2017-03-29] MEDS: traMADol HCL 50 MG TAB PO PRN ×2 (13:17→22:23)
--- NOTE | 2017-03-29 17:10 | HHI.PR ---
Subjective Remarks no diarrhea, fever or chills minimal pain- dry wounds on foot Objective Vitals Vital Signs Date Time Temp Pulse Resp B/P Pulse Ox O2 Delivery O2 Flow Rate FiO2 03/29/17 15:39 97.4 57 18 166/73 96 03/29/17 12:09 97.8 61 18 135/61 98 03/29/17 08:47 64 03/29/17 07:42 96.1 56 18 167/72 96 03/29/17 04:00 97.2 62 20 105/47 93 03/29/17 00:00 97.4 55 20 131/63 92 03/28/17 20:00 98.7 64 20 171/72 94 03/28/17 19:58 18 03/28/17 18:00 98 I/O 03/28/17 03/28/17 03/28/17 03/29/17 03/29/17 03/29/17 07:00 15:00 23:00 07:00 15:00 23:00 Intake Total 1127 ml 240 ml 916 ml 600 ml Output Total 400 ml Balance 727 ml 240 ml 916 ml 600 ml Intake Oral 240 ml 240 ml 240 ml 600 ml IV Total 700 ml 360 ml Other 187 ml 316 ml Output Urine Total 400 ml # Voids 2 2 # Bowel Movements 1 2 Result Diagram: 03/29/17 0852 03/28/17 0715 Imaging Last Impressions Chest X-Ray 03/26/17 1526 Signed Impressions: Service Date/Time: Sunday, March 26, 2017 15:58 - CONCLUSION: 1. Tiny pulmonary nodule within the right upper lung field which is indeterminate. Outpatient CT of the chest may be helpful for further evaluation of the finding if clinically indicated. 2. Minimal streakiness within the left lung base consistent with possible atelectasis. 3. Degenerative changes throughout the thoracic spine. Abram Marie MD Upper Extremity Ultrasound 03/26/17 0000 Signed Impressions: Service Date/Time: Sunday, March 26, 2017 18:30 - CONCLUSION: Negative exam with no evidence of deep venous thrombosis. Mukesh Mike MD Lower Extremity Ultrasound 03/26/17 0000 Signed Impressions: Service Date/Time: Sunday, March 26, 2017 17:46 - CONCLUSION: 1. No evidence of deep venous thrombosis. 2. Left-sided arterial graft no flow. Mukesh Mike MD Objective Remarks awake and alert, NAD anicteric lngs clear regular rhythm abdomen soft, nontender extremities- left foot erythema- mild , heel- dry wounds/scab- no erythema moves all extremities equally Procedures 03/27- aortogram with LE angiogram A/P Assessment and Plan 61 years old female History of PVD worsening foot pain and wounds dry wounds with mild erythema past week- sent over here by her ceramic restorer for vascular evaluation multiple comorbidities- HTN, DM, hyperlipidemia, CKI Acute on chronic LLE PAD: Vascular surgery ff S/P aortogram with LLE angiogram Continue pain control with tramadol. Empiric IV Ancef for possible overlying cellulitis. Continue statin. On heparin drip Vascular surgery ff- plan for procedure - next week History of recent PE on chronic anticoagulation- Coumadin as OP. Heparin gtt for now until Coumadin is resumed. Diabetes mellitus: Chronic, stable. Hold home metformin- had angiogram done. Monitor Accu-Cheks. Current with SSI. CAD/HTN: Chronic, stable. Continue home carvedilol, statin, lisinopril/HCTZ.. some elevated SBPs- increase Lisinorpil to 20 mg daily Acute Anemia on top of chronic Iron deficiency: Likely chronic iron deficiency anemia on home iron supplementation, continue. no outward signs of bleeding. type and x 2 units standby. Increase Iron to tid IV Iron x 3 Other chronic medical conditions include neuropathy, GERD, depression: Stable at this time and will continue home medications as indicated. DVT prophylaxis: Heparin GTT Kamini Jason MD March 29, 2017 17:10
[2017-03-29 20:23] LABS: APTT (PATIENT) 41.3 SEC (24.3-30.1)
[2017-03-29] MEDS: LACTIC ACID (AMMONIUM LACTATE) 12% LOTION 225 GM BTL TOPICAL SCH (21:00)
[2017-03-29] MEDS: ATORVASTATIN 40 MG TAB PO SCH (22:22)
[2017-03-29] MEDS: SODIUM CHLOR 0.9% 1000 ML INJ 1,000 ML IV SCH (22:27)
[2017-03-29] MEDS: SODIUM CHLORIDE 0.9% FLUSH 10 ML FLUSH IV FLUSH SCH ×2 (22:27→22:28)
[2017-03-30] VITALS (8 sets, daily range): BP systolic 121–196; BP diastolic 54–84; PULSE 61–94; RESP 18–20; TEMP 96–98.4; O2SAT 92–99
[2017-03-30] MEDS: HEPARIN-D5W INJ 250 ML IV SCH ×2 (03:13→17:18)
[2017-03-30 04:56] LABS: APTT (PATIENT) 61.5 SEC (24.3-30.1)
[2017-03-30] MEDS: INSULIN ASPART SUPPLEMENTAL SCALE SQ SCH ×4 (06:35→22:34)
[2017-03-30] MEDS ORDERED: LISINOPRIL 10 MG TAB PO SCH (09:00)
[2017-03-30] MEDS: LACTIC ACID (AMMONIUM LACTATE) 12% LOTION 225 GM BTL TOPICAL SCH ×2 (09:00→22:35)
[2017-03-30] MEDS: GABAPENTIN 300 MG CAP PO SCH ×3 (09:51→17:01)
[2017-03-30] MEDS: GLIMEPIRIDE 2 MG TAB PO SCH ×2 (09:52→17:01)
[2017-03-30] MEDS: LISINOPRIL 20 MG TAB PO SCH (09:52)
[2017-03-30] MEDS: ESCITALOPRAM OXALATE 20 MG TAB PO SCH (09:52)
[2017-03-30] MEDS: PANTOPRAZOLE SOD 40 MG DELAYED RELEASE TAB PO SCH (09:52)
[2017-03-30] MEDS: HYDROCHLOROTHIAZIDE 25 MG TAB PO SCH (09:52)
[2017-03-30] MEDS: CARVEDILOL 3.125 MG TAB PO SCH (09:52)
[2017-03-30] MEDS: SODIUM CHLORIDE 0.9% FLUSH 10 ML FLUSH IV FLUSH SCH ×2 (09:53→21:00)
[2017-03-30] MEDS: IRON SUCROSE INJ 100 MG in SODIUM CHLORIDE 0.9% INJ 100 ML IV SCH (11:59)
[2017-03-30 12:05] LABS: APTT (PATIENT) 73.9 SEC (24.3-30.1)
--- NOTE | 2017-03-30 15:42 | HHI.PR ---
Subjective Remarks minimal pain no nausea or vomiting, no diarrhea Objective Vitals Vital Signs Date Time Temp Pulse Resp B/P Pulse Ox O2 Delivery O2 Flow Rate FiO2 03/30/17 12:28 96.6 63 20 187/73 98 03/30/17 08:06 96.0 66 20 189/84 94 03/30/17 04:00 96.7 94 20 159/71 94 03/30/17 00:00 96.7 67 20 155/64 92 03/29/17 21:00 60 03/29/17 20:00 97.9 66 20 164/73 98 I/O 03/29/17 03/29/17 03/29/17 03/30/17 03/30/17 03/30/17 06:59 14:59 22:59 06:59 14:59 22:59 Intake Total 916 ml 600 ml 240 ml 1399 ml Balance 916 ml 600 ml 240 ml 1399 ml Intake Oral 240 ml 600 ml 240 ml 480 ml IV Total 360 ml 919 ml Other 316 ml # Voids 2 1 4 # Bowel Movements 2 1 4 Result Diagram: 03/29/17 0852 03/28/17 0715 Imaging Last Impressions Chest X-Ray 03/26/17 1526 Signed Impressions: Service Date/Time: Sunday, March 26, 2017 15:58 - CONCLUSION: 1. Tiny pulmonary nodule within the right upper lung field which is indeterminate. Outpatient CT of the chest may be helpful for further evaluation of the finding if clinically indicated. 2. Minimal streakiness within the left lung base consistent with possible atelectasis. 3. Degenerative changes throughout the thoracic spine. Abram Marie MD Upper Extremity Ultrasound 03/26/17 0000 Signed Impressions: Service Date/Time: Sunday, March 26, 2017 18:30 - CONCLUSION: Negative exam with no evidence of deep venous thrombosis. Mukesh Mike MD Lower Extremity Ultrasound 03/26/17 0000 Signed Impressions: Service Date/Time: Sunday, March 26, 2017 17:46 - CONCLUSION: 1. No evidence of deep venous thrombosis. 2. Left-sided arterial graft no flow. Mukesh Mike MD Objective Remarks awake and alert, NAD anicteric lngs clear regular rhythm abdomen soft, nontender extremities- left foot - toes cool to touch, erythema- mild , heel- dry wounds /scab- no erythema moves all extremities equally Procedures /- aortogram with LE angiogram A/P Assessment and Plan 61 years old female History of PVD worsening foot pain and wounds dry wounds with mild erythema past week- sent over here by her irrigator head for vascular evaluation multiple comorbidities- HTN, DM, hyperlipidemia, CKI Acute on chronic LLE PAD: Vascular surgery ff S/P aortogram with LLE angiogram Continue pain control with tramadol. Empiric IV Ancef for possible overlying cellulitis. Continue statin. On heparin drip Vascular surgery ff- plan for procedure - next week History of recent PE on chronic anticoagulation- Coumadin as OP. Heparin gtt for now until Coumadin is resumed. Diabetes mellitus: Chronic, stable. Hold home metformin- had angiogram done. Monitor Accu-Cheks. Current with SSI. CAD/HTN: Chronic, stable. Continue home carvedilol, statin, lisinopril/HCTZ.. some elevated SBPs- increase Lisinorpil to 20 mg daily Acute Anemia on top of chronic Iron deficiency: Likely chronic iron deficiency anemia on home iron supplementation, continue. no outward signs of bleeding. type and x 2 units standby. Increase Iron to tid S/P IV Iron x 3 Other chronic medical conditions include neuropathy, GERD, depression: Stable at this time and will continue home medications as indicated. DVT prophylaxis: Heparin GTT Kamini Jason MD March 30, 2017 15:41
[2017-03-30] MEDS: cloNIDine HCL 0.1 MG TAB PO PRN (15:43)
[2017-03-30] MEDS: SODIUM CHLOR 0.9% 1000 ML INJ 1,000 ML IV SCH (18:59)
[2017-03-30] MEDS: ATORVASTATIN 40 MG TAB PO SCH (22:34)
[2017-03-30] MEDS: CARVEDILOL 6.25 MG TAB PO SCH (22:34)
[2017-03-31] VITALS (8 sets, daily range): BP systolic 121–186; BP diastolic 56–74; PULSE 58–70; RESP 8–19; TEMP 96.7–99.1; O2SAT 96–97
[2017-03-31] MEDS: SODIUM CHLOR 0.9% 1000 ML INJ 1,000 ML IV SCH (01:34)
[2017-03-31] MEDS: INSULIN ASPART SUPPLEMENTAL SCALE SQ SCH ×4 (06:21→22:25)
[2017-03-31 07:34] LABS: APTT (PATIENT) 69.3 SEC (24.3-30.1)
[2017-03-31] MEDS: SODIUM CHLORIDE 0.9% FLUSH 10 ML FLUSH IV FLUSH SCH ×2 (08:50→20:07)
[2017-03-31] MEDS: GABAPENTIN 300 MG CAP PO SCH ×3 (08:51→16:31)
[2017-03-31] MEDS: PANTOPRAZOLE SOD 40 MG DELAYED RELEASE TAB PO SCH (08:52)
[2017-03-31] MEDS: LISINOPRIL 20 MG TAB PO SCH (08:52)
[2017-03-31] MEDS: CARVEDILOL 6.25 MG TAB PO SCH ×2 (08:52→20:07)
[2017-03-31] MEDS: GLIMEPIRIDE 2 MG TAB PO SCH ×2 (08:52→16:31)
[2017-03-31] MEDS: HYDROCHLOROTHIAZIDE 25 MG TAB PO SCH (08:53)
[2017-03-31] MEDS: ESCITALOPRAM OXALATE 20 MG TAB PO SCH (08:53)
[2017-03-31] MEDS: LACTIC ACID (AMMONIUM LACTATE) 12% LOTION 225 GM BTL TOPICAL SCH ×2 (08:55→20:08)
[2017-03-31] MEDS: HEPARIN-D5W INJ 250 ML IV SCH (09:04)
--- NOTE | 2017-03-31 11:06 | PD.VS.PN ---
Pre-operative Note Pre-operative diagnosis: L LE rest pain, failed distal bypass Planned procedure: L groin reconstruction, L LE bypass (fem-AT), excision of old bypass Interval History: Pt has pain controlled with pain meds and hep gtt. Remains motor intact and foot slowly less ruborous. Labs: Laboratory Results Test 03/27/17 03/28/17 03/29/17 06:04 07:15 08:52 Prothromb Time International 1.3 RATIO Ratio Sodium Level 142 MEQ/L (136-145) Potassium Level 3.9 MEQ/L (3.5-5.1) Chloride Level 106 MEQ/L (98-107) Carbon Dioxide Level 27.7 MEQ/L (21.0-32.0) Anion Gap 8 MEQ/L (5-15) Blood Urea Nitrogen 11 MG/DL (7-18) Random Glucose 138 MG/DL (74-106) Calcium Level 9.1 MG/DL (8.5-10.1) White Blood Count 7.9 TH/MM3 (4.0-11.0) Red Blood Count 4.49 MIL/MM3 (4.00-5.30) Hemoglobin 10.0 GM/DL (11.6-15.3) Hematocrit 31.5 % (35.0-46.0) Mean Corpuscular Volume 70.1 FL (80.0-100.0) Mean Corpuscular Hemoglobin 22.3 PG (27.0-34.0) Mean Corpuscular Hemoglobin 31.8 % Concent (32.0-36.0) Red Cell Distribution Width 19.6 % (11.6-17.2) Platelet Count 328 TH/MM3 (150-450) Mean Platelet Volume 9.7 FL (7.0-11.0) Blood: T&C 2U Imaging: Last Impressions Chest X-Ray 03/26/17 1526 Signed Impressions: Service Date/Time: Sunday, March 26, 2017 15:58 - CONCLUSION: 1. Tiny pulmonary nodule within the right upper lung field which is indeterminate. Outpatient CT of the chest may be helpful for further evaluation of the finding if clinically indicated. 2. Minimal streakiness within the left lung base consistent with possible atelectasis. 3. Degenerative changes throughout the thoracic spine. Abram Marie MD Upper Extremity Ultrasound 5/3/17 0000 Signed Impressions: Service Date/Time: Sunday, March 26, 2017 18:30 - CONCLUSION: Negative exam with no evidence of deep venous thrombosis. Mukesh Mike MD Lower Extremity Ultrasound 03/26/17 0000 Signed Impressions: Service Date/Time: Sunday, March 26, 2017 17:46 - CONCLUSION: 1. No evidence of deep venous thrombosis. 2. Left-sided arterial graft no flow. Mukesh Mike MD Orders: NPO after MN MIVF D/C hep gtt OCTOR Post-operative destination: PACU then [facility] Operative site marked: Yes Consent: Informed consent has been obtained from Nancy Cao. I have explained the procedure in detail and discussed the risks, benefits, and potential complications. All questions have been answered. Patient contact information: Abram Kessler MD March 31, 2017 11:06
[2017-03-31] MEDS: cloNIDine HCL 0.1 MG TAB PO PRN (13:05)
--- NOTE | 2017-03-31 13:13 | HHI.PR ---
Subjective Remarks no complains of chest pains or shortness of breath afebrile, no pain complaints leg looking forward to surgery tomorrow Objective Vitals Vital Signs Date Time Temp Pulse Resp B/P Pulse Ox O2 Delivery O2 Flow Rate FiO2 03/31/17 12:55 97.8 60 18 186/74 96 03/31/17 08:31 97.0 58 18 151/67 96 03/31/17 08:05 64 03/31/17 04:00 97.0 61 17 167/74 97 03/31/17 00:00 98.9 70 19 122/56 96 03/30/17 20:15 98.4 68 18 121/54 95 03/30/17 18:21 123/59 03/30/17 16:05 61 03/30/17 16:04 97.2 61 20 196/84 99 I/O 03/30/17 03/30/17 03/30/17 03/31/17 03/31/17 03/31/17 07:00 15:00 23:00 07:00 15:00 23:00 Intake Total 1399 ml 750 ml 900 ml Balance 1399 ml 750 ml 900 ml Intake Oral 480 ml 750 ml 900 ml IV Total 919 ml # Voids 1 4 1 4 1 # Bowel Movements 1 4 0 2 1 Result Diagram: 03/29/17 0852 03/28/17 0715 Imaging Last Impressions Chest X-Ray 03/26/17 1526 Signed Impressions: Service Date/Time: Sunday, March 26, 2017 15:58 - CONCLUSION: 1. Tiny pulmonary nodule within the right upper lung field which is indeterminate. Outpatient CT of the chest may be helpful for further evaluation of the finding if clinically indicated. 2. Minimal streakiness within the left lung base consistent with possible atelectasis. 3. Degenerative changes throughout the thoracic spine. Abram Marie MD Upper Extremity Ultrasound 03/26/17 0000 Signed Impressions: Service Date/Time: Sunday, March 26, 2017 18:30 - CONCLUSION: Negative exam with no evidence of deep venous thrombosis. Mukesh Mike MD Lower Extremity Ultrasound 03/26/17 0000 Signed Impressions: Service Date/Time: Sunday, March 26, 2017 17:46 - CONCLUSION: 1. No evidence of deep venous thrombosis. 2. Left-sided arterial graft no flow. Mukesh Mike MD Objective Remarks awake and alert, NAD anicteric lngs clear regular rhythm abdomen soft, nontender extremities- left foot -today warm to touch, + erythema, dry wounds moves all extremities equally Procedures /- aortogram with LE angiogram A/P Assessment and Plan 61 years old female History of PVD worsening foot pain and wounds dry wounds with mild erythema past week- sent over here by her director outcomes for vascular evaluation multiple comorbidities- HTN, DM, hyperlipidemia, CKI Acute on chronic LLE PAD: Vascular surgery ff S/P aortogram with LLE angiogram Continue pain control with tramadol. Empiric IV Ancef for possible overlying cellulitis. Continue statin. On heparin drip Vascular surgery ff- plan for procedure tomorrow History of recent PE on chronic anticoagulation- Coumadin as OP. Heparin gtt for now until Coumadin is resumed. Diabetes mellitus: Chronic, stable. Hold home metformin- had angiogram done. on glimepiride. readings elevated today restart home regimen post op. CAD/HTN: Chronic, stable. Continue home carvedilol, statin, lisinopril/HCTZ.. increase Lisinopril to 20 mg daily Acute Anemia on top of chronic Iron deficiency: Likely chronic iron deficiency anemia on home iron supplementation, continue. no outward signs of bleeding. type and x 2 units standby. Increase Iron to tid S/P IV Iron x 3 Other chronic medical conditions include neuropathy, GERD, depression: Stable at this time and will continue home medications as indicated. DVT prophylaxis: Heparin GTT Kamini Jason MD March 31, 2017 13:13
[2017-03-31] MEDS: ATORVASTATIN 40 MG TAB PO SCH (20:07)
[2017-03-31] MEDS: traMADol HCL 50 MG TAB PO PRN (20:25)
[2017-03-31] MEDS: LACTATED RINGER'S 1000 ML INJ 1,000 ML IV SCH (23:00)
[2017-04-01] VITALS (13 sets, daily range): BP systolic 124–154; BP diastolic 53–80; PULSE 53–72; RESP 18; TEMP 97–98.6; O2SAT 95–100
[2017-04-01] MEDS: HEPARIN-D5W INJ 250 ML IV SCH (02:49)
[2017-04-01] MEDS ORDERED: POVIDONE IODINE 5% (ANTISEPSIS KIT) 4 APPLICATIONS EACH NARE PRN (05:30)
[2017-04-01] MEDS ORDERED: METOPROLOL TARTRATE 25 MG TAB PO PRN (05:30)
[2017-04-01] MEDS ORDERED: CHLORHEXIDINE GLUCONATE 2 % 1 PACK (2 CLOTHS) TOPICAL PRN (05:30)
[2017-04-01] MEDS ORDERED: LACTATED RINGER'S 1000 ML IV PRN (05:30)
[2017-04-01] MEDS ORDERED: SODIUM CHLORID 0.9% 500 ML IV PRN (05:30)
[2017-04-01] MEDS: INSULIN ASPART SUPPLEMENTAL SCALE SQ SCH ×4 (06:21→21:00)
[2017-04-01] MEDS: GLIMEPIRIDE 2 MG TAB PO SCH ×2 (07:16→17:20)
[2017-04-01] MEDS: PANTOPRAZOLE SOD 40 MG DELAYED RELEASE TAB PO SCH (07:19)
[2017-04-01 07:23] LABS: APTT (PATIENT) 54.1 SEC (24.3-30.1)
[2017-04-01] MEDS: GABAPENTIN 300 MG CAP PO SCH ×2 (07:24→17:20)
[2017-04-01] MEDS: SODIUM CHLORIDE 0.9% FLUSH 10 ML FLUSH IV FLUSH SCH ×2 (07:26→21:04)
[2017-04-01] MEDS: CARVEDILOL 6.25 MG TAB PO SCH ×2 (07:27→21:04)
[2017-04-01] MEDS: LISINOPRIL 20 MG TAB PO SCH (07:27)
[2017-04-01] MEDS: HYDROCHLOROTHIAZIDE 25 MG TAB PO SCH (07:27)
[2017-04-01] MEDS: ESCITALOPRAM OXALATE 20 MG TAB PO SCH (07:27)
[2017-04-01] MEDS: LACTIC ACID (AMMONIUM LACTATE) 12% LOTION 225 GM BTL TOPICAL SCH ×2 (07:28→21:00)
[2017-04-01] MEDS ORDERED: THROMBIN (TOPICAL) 5,000 UNIT VIAL ONE (07:30)
[2017-04-01] MEDS ORDERED: HEPARIN SODIUM - SQ 10,000 UNITS/ML VIAL ONE (07:30)
[2017-04-01] MEDS ORDERED: GELFOAM SIZE 100 ONE (07:30)
[2017-04-01 07:35] LABS: HEMATOCRIT 24.8 % (35.0-46.0); MEAN CELL VOLUME 73.1 FL (80.0-100.0); MEAN CORPUSCULAR HEMOGLOBIN 22.8 PG (27.0-34.0); MEAN CORPUSCULAR HGB CONC 31.1 % (32.0-36.0); PLATELET COUNT 261 TH/MM3 (150-450); RED CELL DISTRIBUTION WIDTH 20.2 % (11.6-17.2); WHITE BLOOD COUNT 10.9 TH/MM3 (4.0-11.0)
[2017-04-01 07:38] LABS: REVIEW FLAG FINAL
--- NOTE | 2017-04-01 07:44 | HHI.PR ---
Subjective Remarks comfortable overnight, no pain excited and nervous at the same of the upcoming procedure this am Objective Vitals Vital Signs Date Time Temp Pulse Resp B/P Pulse Ox O2 Delivery O2 Flow Rate FiO2 04/01/17 04:00 97.0 56 18 154/60 95 04/01/17 00:00 98.3 56 18 124/53 97 03/31/17 20:09 99.1 59 16 143/59 96 03/31/17 20:00 59 03/31/17 16:39 96.7 65 8 121/59 97 03/31/17 12:55 97.8 60 18 186/74 96 03/31/17 08:31 97.0 58 18 151/67 96 03/31/17 08:05 64 I/O 03/31/17 03/31/17 03/31/17 04/01/17 04/01/17 04/01/17 07:00 15:00 23:00 07:00 15:00 23:00 Intake Total 900 ml 480 ml 1726 ml 451 ml Balance 900 ml 480 ml 1726 ml 451 ml Intake Oral 900 ml 480 ml IV Total 1726 ml 451 ml # Voids 4 4 4 2 # Bowel Movements 2 2 1 Result Diagram: 03/29/17 0852 03/28/17 0715 Imaging Last Impressions Chest X-Ray 03/26/17 1526 Signed Impressions: Service Date/Time: Sunday, March 26, 2017 15:58 - CONCLUSION: 1. Tiny pulmonary nodule within the right upper lung field which is indeterminate. Outpatient CT of the chest may be helpful for further evaluation of the finding if clinically indicated. 2. Minimal streakiness within the left lung base consistent with possible atelectasis. 3. Degenerative changes throughout the thoracic spine. Abram Marie MD Upper Extremity Ultrasound 03/26/17 0000 Signed Impressions: Service Date/Time: Sunday, March 26, 2017 18:30 - CONCLUSION: Negative exam with no evidence of deep venous thrombosis. Mukesh Mike MD Lower Extremity Ultrasound 03/26/17 0000 Signed Impressions: Service Date/Time: Sunday, March 26, 2017 17:46 - CONCLUSION: 1. No evidence of deep venous thrombosis. 2. Left-sided arterial graft no flow. Mukesh Mike MD Objective Remarks awake and alert, NAD anicteric lungs clear regular rhythm abdomen soft, nontender extremities- left foot - warm to touch, erythema much much improved dry scab, no drainage moves all extremities equally Procedures 5/- aortogram with LE angiogram A/P Assessment and Plan 61 years old female History of PVD worsening foot pain and wounds dry wounds with mild erythema past week- sent over here by her electrical solderer for vascular evaluation multiple comorbidities- HTN, DM, hyperlipidemia, CKI Acute on chronic LLE PAD: Vascular surgery ff S/P aortogram with LLE angiogram Continue pain control with tramadol. Empiric IV Ancef for possible overlying cellulitis. Continue statin. On heparin drip -off for procedyre Vascular surgery ff-- going for surgery this am- reconstruction and escision of old bypass History of recent PE on chronic anticoagulation- Coumadin as OP. Heparin gtt restart post procedure. coumadin post procedure Diabetes mellitus: Chronic, stable. Hold home metformin- had angiogram done. on glimepiride. restart home regimen post op. ff blood sugars CAD/HTN: Chronic, stable. - better readings carvedilol 6.25 mg po bid statin, HCTZ 12.5 daily Lisinopril to 20 mg daily-increased recently Acute Anemia on top of chronic Iron deficiency: Likely chronic iron deficiency anemia on home iron supplementation, continue. no outward signs of bleeding. type and x 2 units standby. Increase Iron to tid S/P IV Iron x 3 Other chronic medical conditions include neuropathy, GERD, depression: Stable at this time and will continue home medications as indicated. DVT prophylaxis: Heparin GTT off for procedure Kamini Jason MD April 01, 2017 07:44
[2017-04-01] MEDS ORDERED: HEPARIN SODIUM - IV 10,000 UNITS/10 ML VIAL ONE (08:06)
[2017-04-01] MEDS ORDERED: THROMBIN (TOPICAL) 20,000 UNIT SPRAY KIT ONE (08:06)
[2017-04-01] MEDS ORDERED: PROTAMINE SULFATE 50 MG/5 ML VIAL ONE (08:06)
[2017-04-01] MEDS ORDERED: VANCOMYCIN HCL 1000 MG VIAL ONE (08:18)
[2017-04-01 09:30] LABS: BLOOD GAS CARBOXYHEMOGLOBIN 2.4 % (0-4); BLOOD GAS HCO3 24 mmol/L (22-26); BLOOD GAS METHEMOGLOBIN 1.1 % (0-2); BLOOD GAS O2 HGB SATURATION 96 % (90-100); BLOOD GAS OXYGEN CONTENT 12.8 Vol % (12.0-20.0); BLOOD GAS PCO2 36 mmHg (38-42); BLOOD GAS PO2 190 mmHg (61-120); BLOOD GAS TOTAL HGB 9.2 G/DL (12.0-16.0); CRITICAL VALUE NO; DRAW SITE ART LINE; OXYGEN DEVICE SEE OR; STAT YES; TEMP CORR TO 98.6
[2017-04-01] MEDS ORDERED: THROMBIN (TOPICAL) 20,000 UNIT SPRAY KIT OTHER ONE (11:16)
[2017-04-01] MEDS ORDERED: PHENYLEPHRINE HCL 10 MG/ML VIAL IV ONE (12:00)
[2017-04-01] MEDS ORDERED: PROPOFOL 200 MG/20 ML AMP IV ONE (12:00)
[2017-04-01] MEDS ORDERED: ONDANSETRON HCL 4 MG/2 ML VIAL IV PUSH ONE (12:00)
[2017-04-01] MEDS ORDERED: SODIUM CHLORID 0.9% 500 ML INJ 500 ML IV ONE (12:00)
[2017-04-01] MEDS ORDERED: SODIUM CHLOR 0.9% 250 ML INJ 250 ML IV ONE (12:00)
[2017-04-01] MEDS ORDERED: NEOSTIGMINE 3 MG/3 ML SYR IV ONE (12:00)
[2017-04-01] MEDS ORDERED: ePHEDrine/NS 25 MG/5 ML SYR IV ONE (12:00)
[2017-04-01] MEDS ORDERED: DEXTROSE 5%-LACTATED RING INJ 1,000 ML IV ONE (12:00)
--- NOTE | 2017-04-01 12:00 | HHI.PR ---
Immediate Post Op Note Procedure Date: April 01, 2017 Pre Op Diagnosis: PAD, L LE tissue loss, failed distal bypass Post Op Diagnosis: PAD, L LE tissue loss, failed distal bypass Surgeon: Abram Kessler Skate Hop(s): Yvon Amaya Procedure: 1. L iliofemoral bypass with 8mm Dacron 2. L fem-AT bypass with cryo vein 3. Redo procedure 4. 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
[2017-04-01] MEDS ORDERED: MIDAZOLAM HCL 2 MG/2 ML VIAL ONE (12:09)
[2017-04-01] MEDS ORDERED: LACTATED RINGER'S 1000 ML INJ 1,000 ML IV SCH (12:10)
[2017-04-01] MEDS ORDERED: fentaNYL CITRATE 250 MCG/5 ML AMP ONE (12:10)
[2017-04-01] MEDS ORDERED: HYDROmorphone HCL PCA 6 MG/30 ML IV SCH (12:15)
[2017-04-01] MEDS ORDERED: NALOXONE HCL 0.4 MG/ML AMP IV PRN (12:15)
[2017-04-01 12:17] LABS: MEAN CORPUSCULAR HGB CONC 29.8 % (32.0-36.0)
[2017-04-01] MEDS ORDERED: *HYDROmorphone PF 1 MG VIAL PERIprocedural Use ONLY ONE ×2 (12:19→12:36)
[2017-04-01] MEDS ORDERED: ENOXAPARIN SODIUM 30 MG/0.3 ML SYRINGE SQ SCH (13:00)
[2017-04-01] MEDS: PCA - TOTAL MG DILAUDID DELIVERED PER SHIFT OTHER SCH ×2 (14:00→21:06)
[2017-04-01 19:21] LABS: HEMATOCRIT 27.5 % (35.0-46.0); MEAN CELL VOLUME 74.3 FL (80.0-100.0); MEAN CORPUSCULAR HEMOGLOBIN 22.1 PG (27.0-34.0); PLATELET COUNT 250 TH/MM3 (150-450); RED BLOOD COUNT 3.71 MIL/MM3 (4.00-5.30); RED CELL DISTRIBUTION WIDTH 20.4 % (11.6-17.2); WHITE BLOOD COUNT 13.9 TH/MM3 (4.0-11.0)
[2017-04-01 19:25] LABS: REVIEW FLAG FINAL
[2017-04-01 19:39] LABS: BICARBONATE 27.7 MEQ/L (21.0-32.0); POTASSIUM 4.2 MEQ/L (3.5-5.1)
[2017-04-01] MEDS: FAMOTIDINE 20 MG TAB PO SCH (21:04)
[2017-04-01] MEDS: ATORVASTATIN 40 MG TAB PO SCH (21:04)
[2017-04-01] MEDS: DOCUSATE SODIUM 100 MG CAP PO SCH (21:04)
[2017-04-02] VITALS (26 sets, daily range): BP systolic 125–156; BP diastolic 66–89; PULSE 62–85; RESP 16–20; TEMP 98–99.1; O2SAT 93–95
[2017-04-02] MEDS: LACTATED RINGER'S 1000 ML INJ 1,000 ML IV SCH (04:07)
[2017-04-02] MEDS: PCA - TOTAL MG DILAUDID DELIVERED PER SHIFT OTHER SCH ×3 (05:46→22:38)
[2017-04-02 06:15] LABS: HEMATOCRIT 24.8 % (35.0-46.0); MEAN CELL VOLUME 72.9 FL (80.0-100.0); MEAN CORPUSCULAR HEMOGLOBIN 22.7 PG (27.0-34.0); MEAN CORPUSCULAR HGB CONC 31.2 % (32.0-36.0); PLATELET COUNT 238 TH/MM3 (150-450); RED CELL DISTRIBUTION WIDTH 20.1 % (11.6-17.2)
[2017-04-02 06:31] LABS: APTT (PATIENT) 29.9 SEC (24.3-30.1)
[2017-04-02 06:36] LABS: REVIEW FLAG FINAL
[2017-04-02 06:37] LABS: BICARBONATE 28.6 MEQ/L (21.0-32.0)
[2017-04-02] MEDS: INSULIN ASPART SUPPLEMENTAL SCALE SQ SCH ×4 (07:00→21:00)
--- NOTE | 2017-04-02 07:05 | PD.VS.PN ---
Subjective POD #: 1 Procedure(s): L iliofem, fem-AT (cryo), excision of bypass, re-do bypass Subjective/Hospital Course Slightly nauseated this morning, but pain controlled. Foot feels good. Overall looks great. Objective Vitals/I&O Date Time Temp Pulse Resp B/P Pulse Ox O2 Delivery O2 Flow Rate FiO2 04/02/17 06:00 79 04/02/17 05:46 18 04/02/17 05:00 83 04/02/17 04:00 78 04/02/17 04:00 93 Nasal Cannula 2.00 04/02/17 04:00 99.1 77 20 138/71 93 04/02/17 03:00 71 04/02/17 02:00 85 04/02/17 01:00 64 04/02/17 00:00 95 Nasal Cannula 1.00 04/02/17 00:00 62 04/02/17 00:00 98.7 63 18 125/66 95 04/01/17 23:00 62 04/01/17 22:00 64 04/01/17 21:06 18 04/01/17 21:00 72 04/01/17 20:00 98.6 70 18 125/73 95 04/01/17 20:00 60 04/01/17 20:00 95 Nasal Cannula 1.00 04/01/17 19:00 58 04/01/17 18:00 60 04/01/17 17:00 64 04/01/17 16:00 68 04/01/17 15:00 98.0 69 126/80 96 04/01/17 15:00 62 04/01/17 14:30 97.8 67 12 146/65 99 Nasal Cannula 2 04/01/17 14:15 72 12 136/64 98 04/01/17 14:00 70 12 140/63 97 04/01/17 13:45 73 12 142/67 97 04/01/17 13:30 75 10 142/65 97 04/01/17 13:15 74 12 142/65 97 04/01/17 13:00 72 16 147/67 97 04/01/17 12:48 16 04/01/17 12:45 72 15 160/71 95 04/01/17 12:30 78 15 144/68 95 04/01/17 12:15 80 11 176/90 97 Nasal Cannula 2 04/01/17 12:06 97.8 77 12 168/79 96 Nasal Cannula 3 04/01/17 12:00 04/01/17 08:05 53 04/01/17 08:00 97.6 65 18 147/65 100 04/02/17 04/02/17 04/02/17 07:00 15:00 23:00 Intake Total 1086 ml Output Total 300 ml Balance 786 ml Exam: L groin VAC in place, no hematoma L medial thigh soft and appropriately minimally tender L AT exposure dressing intact Foot warm, pink, motor intact Pulses: Strong DP Doppler signal Palpable lateral leg fem-AT pulse Laboratory Laboratory Tests Test 04/01/17 04/01/17 04/01/17 04/02/17 08:43 09:12 18:15 04:39 Blood Type B POSITIVE Crossmatch Leukocyte-Reduced Red Blood Cells Blood Bank Comment Blood Gas Puncture Site ART LINE Blood Gas Patient Temperature 98.6 Blood Gas HCO3 24 Blood Gas Base Excess 0.0 Blood Gas Oxygen Saturation 96 Arterial Blood pH 7.44 Arterial Blood Partial 36 Pressure CO2 Arterial Blood Partial 190 Pressure O2 Arterial Blood Oxygen Content 12.8 Arterial Blood 2.4 Carboxyhemoglobin Arterial Blood Methemoglobin 1.1 Blood Gas Hemoglobin 9.2 Oxygen Delivery Device SEE OR White Blood Count 13.9 13.0 Red Blood Count 3.71 3.40 Hemoglobin 8.2 7.7 Hematocrit 27.5 24.8 Mean Corpuscular Volume 74.3 72.9 Mean Corpuscular Hemoglobin 22.1 22.7 Mean Corpuscular Hemoglobin 29.8 31.2 Concent Red Cell Distribution Width 20.4 20.1 Platelet Count 250 238 Mean Platelet Volume 9.8 10.0 Sodium Level 139 140 Potassium Level 4.2 4.0 Chloride Level 105 102 Carbon Dioxide Level 27.7 28.6 Anion Gap 6 9 Blood Urea Nitrogen 10 10 Creatinine 1.00 1.04 Estimat Glomerular Filtration 57 54 Rate Random Glucose 111 159 Calcium Level 7.9 8.3 Activated Partial 29.9 Thromboplast Time Assessment and Plan Plan POD#1 s/p complex re-do distal; looks great 1. Start heparin gtt and plan on starting coumadin tomorrow. Pt w/ h/o PE and also needs hep gtt for graft protection 2. OOB TC 3. D/C Abram Yun MD April 02, 2017 07:05
[2017-04-02] MEDS ORDERED: HEPARIN-D5W INJ 250 ML IV SCH (07:15)
[2017-04-02] MEDS: HEPARIN-D5W INJ 250 ML IV SCH ×2 (08:16→22:36)
[2017-04-02 08:56] LABS: APTT (PATIENT) 29.6 SEC (24.3-30.1); PROTHROMBIN TIME - PATIENT 10.9 SEC (9.8-11.6)
[2017-04-02] MEDS: ESCITALOPRAM OXALATE 20 MG TAB PO SCH (10:05)
[2017-04-02] MEDS: FAMOTIDINE 20 MG TAB PO SCH ×2 (10:05→21:19)
[2017-04-02] MEDS: GLIMEPIRIDE 2 MG TAB PO SCH ×2 (10:05→17:06)
[2017-04-02] MEDS: DOCUSATE SODIUM 100 MG CAP PO SCH ×2 (10:05→21:19)
[2017-04-02] MEDS: CARVEDILOL 6.25 MG TAB PO SCH ×2 (10:05→21:19)
[2017-04-02] MEDS: GABAPENTIN 300 MG CAP PO SCH ×3 (10:05→17:06)
[2017-04-02] MEDS: HYDROCHLOROTHIAZIDE 25 MG TAB PO SCH (10:06)
[2017-04-02] MEDS: ASPIRIN EC 81 MG TABEC PO SCH (10:06)
[2017-04-02] MEDS: SODIUM CHLORIDE 0.9% FLUSH 10 ML FLUSH IV FLUSH SCH ×2 (10:06→21:00)
[2017-04-02] MEDS: LISINOPRIL 20 MG TAB PO SCH (10:09)
[2017-04-02] MEDS: LACTIC ACID (AMMONIUM LACTATE) 12% LOTION 225 GM BTL TOPICAL SCH ×2 (10:09→21:19)
--- NOTE | 2017-04-02 12:00 | HHI.PR ---
Subjective Remarks Follow-up for peripheral arterial disease status post left lower extremity bypass surgery. Patient is currently doing well. Denies any chest pain or shortness of breath, fever or chills. Sitting in her chair. Objective Vitals Vital Signs Date Time Temp Pulse Resp B/P Pulse Ox O2 Delivery O2 Flow Rate FiO2 04/02/17 06:00 79 04/02/17 05:46 18 04/02/17 05:00 83 04/02/17 04:00 78 04/02/17 04:00 93 Nasal Cannula 2.00 04/02/17 04:00 99.1 77 20 138/71 93 04/02/17 03:00 71 04/02/17 02:00 85 04/02/17 01:00 64 04/02/17 00:00 95 Nasal Cannula 1.00 04/02/17 00:00 62 04/02/17 00:00 98.7 63 18 125/66 95 04/01/17 23:00 62 04/01/17 22:00 64 04/01/17 21:06 18 04/01/17 21:00 72 04/01/17 20:00 98.6 70 18 125/73 95 04/01/17 20:00 60 04/01/17 20:00 95 Nasal Cannula 1.00 04/01/17 19:00 58 04/01/17 18:00 60 04/01/17 17:00 64 04/01/17 16:00 68 04/01/17 15:00 98.0 69 126/80 96 04/01/17 15:00 62 04/01/17 14:30 97.8 67 12 146/65 99 Nasal Cannula 2 04/01/17 14:15 72 12 136/64 98 04/01/17 14:00 70 12 140/63 97 04/01/17 13:45 73 12 142/67 97 04/01/17 13:30 75 10 142/65 97 04/01/17 13:15 74 12 142/65 97 04/01/17 13:00 72 16 147/67 97 04/01/17 12:48 16 04/01/17 12:45 72 15 160/71 95 04/01/17 12:30 78 15 144/68 95 04/01/17 12:15 80 11 176/90 97 Nasal Cannula 2 04/01/17 12:06 97.8 77 12 168/79 96 Nasal Cannula 3 I/O 04/01/17 04/01/17 04/01/17 04/02/17 04/02/17 04/02/17 07:00 15:00 23:00 07:00 15:00 23:00 Intake Total 451 ml 2000 ml 1086 ml Output Total 650 ml 150 ml 300 ml Balance 451 ml 1350 ml -150 ml 786 ml Intake Oral 240 ml IV Total 451 ml 846 ml Other 2000 ml Output Urine Total 150 ml 150 ml 300 ml Estimated Blood Loss 150 ml Other 350 ml # Voids 2 # Bowel Movements 0 Result Diagram: 04/02/17 0439 04/02/17 0439 Imaging Last Impressions Chest X-Ray 03/26/17 1526 Signed Impressions: Service Date/Time: Sunday, March 26, 2017 15:58 - CONCLUSION: 1. Tiny pulmonary nodule within the right upper lung field which is indeterminate. Outpatient CT of the chest may be helpful for further evaluation of the finding if clinically indicated. 2. Minimal streakiness within the left lung base consistent with possible atelectasis. 3. Degenerative changes throughout the thoracic spine. Abram Marie MD Upper Extremity Ultrasound 03/26/17 0000 Signed Impressions: Service Date/Time: Sunday, March 26, 2017 18:30 - CONCLUSION: Negative exam with no evidence of deep venous thrombosis. Mukesh Mike MD Lower Extremity Ultrasound 03/26/17 0000 Signed Impressions: Service Date/Time: Sunday, March 26, 2017 17:46 - CONCLUSION: 1. No evidence of deep venous thrombosis. 2. Left-sided arterial graft no flow. Mukesh Mike MD Objective Remarks GENERAL: Alert, oriented 3, NAD. SKIN: Warm and dry. HEAD: Normocephalic. EYES: No scleral icterus. No injection or drainage. NECK: Supple, trachea midline. No JVD or lymphadenopathy. CARDIOVASCULAR: Regular rate and rhythm without murmurs, gallops, or rubs. RESPIRATORY: Breath sounds equal bilaterally. No accessory muscle use. GASTROINTESTINAL: Abdomen soft, non-tender, nondistended. MUSCULOSKELETAL: No cyanosis, or edema. Left foot warm to touch. BACK: Nontender without obvious deformity. No CVA tenderness. Procedures 03/27/2017 Aortogram with left lower extremity angiograms. 04/01/2017 1. L iliofemoral bypass with 8mm Dacron 2. L fem-AT bypass with cryo vein 3. Redo procedure 4. Excision of old bypass A/P Problem List: (1) PAD (peripheral artery disease) ICD Code: I73.9 Status: Acute (2) DM (diabetes mellitus) ICD Code: E11.9 Status: Acute (3) HTN (hypertension) ICD Code: I10 Status: Acute Assessment and Plan 61 years old female History of PVD worsening foot pain and wounds dry wounds with mild erythema past week- sent over here by her curtain stretcher for vascular evaluation multiple comorbidities- HTN, DM, hyperlipidemia, CKI Acute on chronic LLE PAD: Vascular surgery ff S/P aortogram with LLE angiogram Continue pain control with tramadol. Empiric IV Ancef for possible overlying cellulitis. Continue statin. Status post left iliofemoral bypass and left femoralAT bypass. History of recent PE on chronic anticoagulation- Coumadin as OP. Heparin gtt restarted post procedure. Warfarin on discharge. Diabetes mellitus: Chronic, stable. Takes JanuMet and glimepiride at home. JanuMet is on hold. Continue glimepiride 2 mg twice a day and sliding scale insulin. CAD/HTN: Chronic, stable. - better readings carvedilol 6.25 mg po bid statin, HCTZ 12.5 daily Lisinopril to 20 mg daily-increased recently Acute Anemia on top of chronic Iron deficiency: Likely chronic iron deficiency anemia on home iron supplementation, continue. no outward signs of bleeding. type and x 2 units standby. Hemoglobin 7.7 on 04/02/2017. Increase Iron to tid S/P IV Iron x 3 Other chronic medical conditions include neuropathy, GERD, depression: Stable at this time and will continue home medications as indicated. Full code, heparin drip. Vitor Carr DO April 02, 2017 12:00 pm
--- NOTE | 2017-04-02 14:00 | MP ---
cc: RANDY KESSLER MD DATE OF SURGERY: 04/01/2017 PREOPERATIVE DIAGNOSIS: Left lower extremity rest pain and tissue loss, failed distal bypass. POSTOPERATIVE DIAGNOSIS: Left lower extremity rest pain and tissue loss, failed distal bypass. PROCEDURE 1. Left iliofemoral bypass with 8 mm Dacron. 2. Left femoral to anterior tibial artery bypass with cryopreserved vein. 3. Redo bypass. 4. Excision of old bypass. ATTENDING SURGEON Randy Kessler MD VICE PRESIDENT [employer] SALES SURGEON Yvon Amaya. ANESTHESIA General. INDICATIONS Ms. Cao is a 61-year-old lady with a previous lower extremity bypass. She presented to the emergency department with tissue loss and profound rest pain. She is taken to the operating room for a redo bypass. Preoperative imaging suggested she had no adequate autogenous conduit and so cryopreserved tissue was chosen. DESCRIPTION OF PROCEDURE Informed consent was obtained from the patient. She was taken to the operating room and placed supine on the operating room table and appropriate timeout was taken to insure the patient identity, the operative site and planned procedure. A gram of vancomycin was initiated prior to skin incision and will be discontinued after single preop dose. Vancomycin was chosen because of the patient's preoperative length of stay being greater than 48-hours. Everyone in the room agreed with timeout and we proceeded. She was prepped from her nipples to her toes and a vertical incision was made in the patient's left groin, carried down subcutaneous with electrocautery. Then scar tissue was encountered. The [place] SFA and profunda were identified and dissected free and then we dissected back to the common femoral artery which was known to be occluded. The previous fem-pop bypass was identified and transected and it was indeed noted to be occluded. We then dissected up to the external iliac artery which was the first present with a palpable pulse. We dissected around the external iliac artery and vessel loops was placed around this. A separate incision was made in the patient's lateral calf and carried down to subcutaneous tissue with electrocautery in between the anterior and lateral muscle compartments, at which point the anterior tibial artery was identified and dissection for several centimeters. A separate counter incision was made in the lateral thigh and a tunnel was then created in the prefascial plane between the calf and lateral thigh incisions. A subsartorial tunnel was created between the lateral thigh incision and the groin incision. At this point the patient was systemically heparinized and throughout the remainder of the case the AC was kept greater than 250 with additional boluses of heparin. The proximal control of the external iliac artery was obtained with profunda clamp as well as the circumflex iliac vessels. The first branches of the profunda were controlled with profunda clamps and a longitudinal arteriotomy was made with an 11 blade extended with Jac scissors, extending from the common femoral artery. The entire common femoral artery was then resected and a posterior branch was doubly clipped with a small hemoclip. We then endarterectomized the external iliac artery and a nice result was obtained. A 8 mm Dacron was brought up on the field spatulated and sewn end-to-end to the external iliac artery with running 5-0 Prolene suture. At the completion it was flushed and noted to be hemostatic. The clamp was released from the external iliac artery and circumflex vessels and a Guido soft jaw clamp was placed on the Dacron. The Dacron was cut to an appropriate length and spatulated and the profunda was transected proximally, at which point it was noted to be occluded. We then endarterectomized the profunda down to the main bifurcation and achieved a nice end point. The Dacron was sewn end-to-end to the profunda at its bifurcation with running 6-0 Prolene suture. At the completion the clamps were released. Both anastomoses were hemostatic and there was a nice Doppler signal in both branches of the profunda outflow. We then clamped the Dacron with Guido soft jaw clamps and a longitudinal graftotomy was made with an 11 blade and extended with [place] scissors. The cryopreserved vein had been brought up on the field and thawed in the usual manner. It was flushed and found to be hemostatic. They were spatulated and sewn end-to-side to the Dacron with running 5-0 Prolene suture. Clamps were placed in the distal end of the cryopreserved vein and the clamps on the Dacron were released. The cryo vein distended quite nicely and had a nice pulse in it. It was marked for orientation and passed to the lateral thigh and then down to the calf and the anterior tibial artery. The anterior tibial artery was clamped proximally and distally with Matthias clamps and a longitudinal arteriotomy was made with 11 blade, extended with [place] scissors. The cryo vein was cut to an appropriate length, spatulated and sewn end-to-side to the anterior tibial artery with running 6-0 Prolene suture. At the completion it was flushed and noted to be hemostatic. Clamps were released, there was a nice Doppler signal in the foot, graft dependent. All the wounds were made hemostatic and closed with 2-0 Polysorb, 3-0 Polysorb and 4-0 Monocryl. On the medial aspect of the thigh the graft was easily palpable and two incisions were made in the mid and distal thigh and carried down to subcutaneous tissue with electrocautery. The graft was identified and it was felt to be occluded. It was clamped proximally and distally, transected and the proximal and distal ends were oversewn with Silk suture and the graft was excised in the tunnel between these two incisions. The incisions were irrigated and closed with 2-0 Polysorb, 3-0 Polysorb and 4-0 Monocryl. The sponge and needle counts were correct at the end of the case. I was present and scrubbed and performed the entire procedure. MD HU Greene/VALDEMAR /2:10 PM /1:03 PM
[2017-04-02 15:45] LABS: APTT (PATIENT) 33.2 SEC (24.3-30.1)
[2017-04-02 19:47] LABS: POTASSIUM 3.8 MEQ/L (3.5-5.1)
[2017-04-02 20:57] LABS: APTT (PATIENT) 48.3 SEC (24.3-30.1)
[2017-04-02] MEDS: ATORVASTATIN 40 MG TAB PO SCH (21:19)
[2017-04-03] VITALS (28 sets, daily range): BP systolic 109–161; BP diastolic 55–73; PULSE 60–78; RESP 16–18; TEMP 98.5–99.4; O2SAT 92–100
[2017-04-03 03:07] LABS: APTT (PATIENT) 55.7 SEC (24.3-30.1)
[2017-04-03] MEDS: INSULIN ASPART SUPPLEMENTAL SCALE SQ SCH ×4 (05:49→21:21)
[2017-04-03] MEDS: PCA - TOTAL MG DILAUDID DELIVERED PER SHIFT OTHER SCH (05:50)
[2017-04-03 05:52] LABS: APTT (PATIENT) 51.5 SEC (24.3-30.1)
[2017-04-03] MEDS: ASPIRIN EC 81 MG TABEC PO SCH (08:53)
[2017-04-03] MEDS: GLIMEPIRIDE 2 MG TAB PO SCH ×2 (08:53→16:58)
[2017-04-03] MEDS: DOCUSATE SODIUM 100 MG CAP PO SCH ×2 (08:53→21:19)
[2017-04-03] MEDS: CARVEDILOL 6.25 MG TAB PO SCH ×2 (08:53→21:19)
[2017-04-03] MEDS: GABAPENTIN 300 MG CAP PO SCH ×3 (08:53→16:58)
[2017-04-03] MEDS: HYDROCHLOROTHIAZIDE 25 MG TAB PO SCH (08:53)
[2017-04-03] MEDS: ESCITALOPRAM OXALATE 20 MG TAB PO SCH (08:53)
[2017-04-03] MEDS: LISINOPRIL 20 MG TAB PO SCH (08:53)
[2017-04-03] MEDS: FAMOTIDINE 20 MG TAB PO SCH ×2 (08:53→21:19)
[2017-04-03] MEDS: SODIUM CHLORIDE 0.9% FLUSH 10 ML FLUSH IV FLUSH SCH ×2 (08:54→21:20)
[2017-04-03] MEDS: LACTIC ACID (AMMONIUM LACTATE) 12% LOTION 225 GM BTL TOPICAL SCH ×2 (08:54→21:22)
--- NOTE | 2017-04-03 09:23 | HHI.PR ---
Subjective Remarks Follow-up for peripheral arterial disease status post left lower extremity bypass surgery. Patient is currently doing well, sitting in her chair. Denies any chest pain, shortness of breath, fever or chills. She still has pain in her left lower extremity. Objective Vitals Vital Signs Date Time Temp Pulse Resp B/P Pulse Ox O2 Delivery O2 Flow Rate FiO2 04/03/17 08:00 98.6 65 16 161/73 100 04/03/17 06:07 63 04/03/17 05:50 17 04/03/17 05:00 60 04/03/17 04:00 64 04/03/17 03:09 99.0 67 18 109/55 94 04/03/17 03:09 66 04/03/17 03:09 94 Nasal Cannula 2.00 04/03/17 02:24 64 04/03/17 01:18 63 04/03/17 00:20 70 04/03/17 00:03 98.9 70 18 116/68 96 04/03/17 00:03 96 Nasal Cannula 2.00 04/02/17 23:28 67 04/02/17 22:38 18 04/02/17 22:00 74 04/02/17 21:00 76 04/02/17 20:45 94 Nasal Cannula 2.00 04/02/17 20:45 99.0 79 18 139/66 94 04/02/17 20:00 72 04/02/17 19:00 77 04/02/17 18:01 79 04/02/17 17:00 82 04/02/17 16:12 75 04/02/17 15:00 69 04/02/17 15:00 95 Room Air 04/02/17 15:00 98.9 76 16 156/78 95 04/02/17 14:00 67 04/02/17 13:49 15 04/02/17 13:00 69 04/02/17 12:00 74 04/02/17 11:30 98.5 76 16 145/71 95 04/02/17 11:30 95 Room Air 04/02/17 11:00 75 04/02/17 10:00 84 I/O 04/02/17 04/02/17 04/02/17 04/03/17 04/03/17 04/03/17 07:00 15:00 23:00 07:00 15:00 23:00 Intake Total 1086 ml 952 ml 1352 ml Output Total 300 ml 275 ml 950 ml Balance 786 ml 677 ml 402 ml Intake Oral 240 ml 420 ml 480 ml IV Total 846 ml 532 ml 872 ml Output Urine Total 300 ml 275 ml 950 ml Bladder Scan Volume Amount 47 ml # Voids 1 # Bowel Movements 0 0 0 Result Diagram: 04/02/17 0439 04/02/17 1909 Imaging Last Impressions Chest X-Ray 03/26/17 1526 Signed Impressions: Service Date/Time: Sunday, March 26, 2017 15:58 - CONCLUSION: 1. Tiny pulmonary nodule within the right upper lung field which is indeterminate. Outpatient CT of the chest may be helpful for further evaluation of the finding if clinically indicated. 2. Minimal streakiness within the left lung base consistent with possible atelectasis. 3. Degenerative changes throughout the thoracic spine. Abram Marie MD Upper Extremity Ultrasound 03/26/17 0000 Signed Impressions: Service Date/Time: Sunday, March 26, 2017 18:30 - CONCLUSION: Negative exam with no evidence of deep venous thrombosis. Mukesh Mike MD Lower Extremity Ultrasound 03/26/17 0000 Signed Impressions: Service Date/Time: Sunday, March 26, 2017 17:46 - CONCLUSION: 1. No evidence of deep venous thrombosis. 2. Left-sided arterial graft no flow. Mueksh Mike MD Objective Remarks GENERAL: Alert, oriented 3, NAD. SKIN: Warm and dry. HEAD: Normocephalic. EYES: No scleral icterus. No injection or drainage. NECK: Supple, trachea midline. No JVD or lymphadenopathy. CARDIOVASCULAR: Regular rate and rhythm without murmurs, gallops, or rubs. RESPIRATORY: Breath sounds equal bilaterally. No accessory muscle use. GASTROINTESTINAL: Abdomen soft, non-tender, nondistended. MUSCULOSKELETAL: No cyanosis, or edema. Left foot warm to touch. BACK: Nontender without obvious deformity. No CVA tenderness. Procedures 03/27/2017 Aortogram with left lower extremity angiograms. 04/01/2017 1. L iliofemoral bypass with 8mm Dacron 2. L fem-AT bypass with cryo vein 3. Redo procedure 4. Excision of old bypass A/P Problem List: (1) PAD (peripheral artery disease) ICD Code: I73.9 Status: Acute (2) DM (diabetes mellitus) ICD Code: E11.9 Status: Acute (3) HTN (hypertension) ICD Code: I10 Status: Acute Assessment and Plan 61 years old female History of PVD worsening foot pain and wounds dry wounds with mild erythema past week- sent over here by her prescription clerk lenses for vascular evaluation multiple comorbidities- HTN, DM, hyperlipidemia, CKI Acute on chronic LLE PAD: Vascular surgery ff S/P aortogram with LLE angiogram Continue pain control with tramadol. Empiric IV Ancef for possible overlying cellulitis. Continue statin. Status post left iliofemoral bypass and left femoralAT bypass. History of recent PE on chronic anticoagulation Patient apparently had blood clots while on apixaban does know her oral anticoagulants are probably not a viable options for her Heparin gtt restarted post procedure. We'll start on warfarin today. Start warfarin 4 mg every afternoon and consult pharmacy for warfarin management. Diabetes mellitus: Chronic, stable. Takes JanuMet and glimepiride at home. JanuMet is on hold. Continue glimepiride 2 mg twice a day and sliding scale insulin. CAD/HTN: Chronic, stable. - better readings carvedilol 6.25 mg po bid statin, HCTZ 12.5 daily Lisinopril to 20 mg daily-increased recently Acute Anemia on top of chronic Iron deficiency: Likely chronic iron deficiency anemia on home iron supplementation, continue. no outward signs of bleeding. type and x 2 units standby. Hemoglobin 7.7 on 04/02/2017. Continue Iron to tid S/P IV Iron x 3 Other chronic medical conditions include neuropathy, GERD, depression: Stable at this time and will continue home medications as indicated. Full code, heparin drip. Vitor Carr DO April 03, 2017 9:23 am
--- NOTE | 2017-04-03 11:21 | PD.VS.PN ---
Subjective POD #: 2 Procedure(s): L iliofem, fem-AT (cryo), excision of bypass, re-do bypass Subjective/Hospital Course Pt sitting in chair this am alert and in NAD Pt reported improved sensation and feeling to LLE Pain controlled Pt developed urinary retention post [place] cath removal [place] was reinserted w/o difficulty (Suzi Ram) Objective Vitals/I&O Date Time Temp Pulse Resp B/P Pulse Ox O2 Delivery O2 Flow Rate FiO2 04/03/17 08:00 98.6 65 16 161/73 100 04/03/17 06:07 63 04/03/17 05:50 17 04/03/17 05:00 60 04/03/17 04:00 64 04/03/17 03:09 99.0 67 18 109/55 94 04/03/17 03:09 66 04/03/17 03:09 94 Nasal Cannula 2.00 04/03/17 02:24 64 04/03/17 01:18 63 04/03/17 00:20 70 04/03/17 00:03 98.9 70 18 116/68 96 04/03/17 00:03 96 Nasal Cannula 2.00 04/02/17 23:28 67 04/02/17 22:38 18 04/02/17 22:00 74 04/02/17 21:00 76 04/02/17 20:45 94 Nasal Cannula 2.00 04/02/17 20:45 99.0 79 18 139/66 94 04/02/17 20:00 72 04/02/17 19:00 77 04/02/17 18:01 79 04/02/17 17:00 82 04/02/17 16:12 75 04/02/17 15:00 69 04/02/17 15:00 95 Room Air 04/02/17 15:00 98.9 76 16 156/78 95 04/02/17 14:00 67 04/02/17 13:49 15 04/02/17 13:00 69 04/02/17 12:00 74 04/02/17 11:30 98.5 76 16 145/71 95 04/02/17 11:30 95 Room Air 04/03/17 04/03/17 04/03/17 07:00 15:00 23:00 Intake Total 1352 ml Output Total 950 ml Balance 402 ml Exam: GENERAL: Alert in nad, Pt resting comfortably in a chair eating breakfast. [id number] SKIN: Warm and dry. Wound vac in place to Left groin CARDIOVASCULAR: +S1,S2 GASTROINTESTINAL: Abdomen S/NT MUSCULOSKELETAL: L foot warm/pink and with strong phasic DP/PT heard via doppler BLE warm with motor intact Pulses: Left + STRONG DP/PT Incisions: Vac to Left groin intact Laboratory Laboratory Tests Test 04/02/17 04/02/17 04/02/17 04/03/17 14:25 19:09 20:09 02:49 Activated Partial 33.2 48.3 55.7 Thromboplast Time Sodium Level 138 Potassium Level 3.8 Chloride Level 101 Carbon Dioxide Level 29.0 Anion Gap 8 Blood Urea Nitrogen 9 Creatinine 1.10 Estimat Glomerular Filtration 51 Rate Random Glucose 134 Calcium Level 7.9 Test 04/03/17 04:42 Activated Partial 51.5 Thromboplast Time (Suzi Ram) Assessment and Plan Plan Plan Orders for Coumadin therapy to start this afternoon (home dose) Continue heparin gtt/Pt w/ h/o PE and also needs hep gtt for graft protection Continue PT/OOB [place] to be removed in 2 days D/C BODY MAN/ transition to PO pain meds D/C MIVF Suzi RODAS [employer] [phone] (Suzi Ram) Plan I agree with above assessment and plan. [place] in place. Jose Rosario DO, FACS. (Jose Rosario DO) Suzi Ram April 03, 2017 11:20 Jose Rosario DO April 03, 2017 11:46
[2017-04-03] MEDS: HEPARIN-D5W INJ 250 ML IV SCH (14:51)
[2017-04-03] MEDS ORDERED: WARFARIN SOD 7.5 MG TAB PO SCH (16:00)
[2017-04-03] MEDS ORDERED: WARFARIN SOD 4 MG TAB PO SCH (16:00)
[2017-04-03] MEDS: ATORVASTATIN 40 MG TAB PO SCH (21:19)
[2017-04-04] VITALS (27 sets, daily range): BP systolic 109–170; BP diastolic 56–84; PULSE 57–76; RESP 18; TEMP 98.1–98.9; O2SAT 92–97
[2017-04-04] MEDS: HEPARIN-D5W INJ 250 ML IV SCH (06:23)
[2017-04-04] MEDS: INSULIN ASPART SUPPLEMENTAL SCALE SQ SCH ×4 (06:25→20:23)
--- NOTE | 2017-04-04 07:21 | PD.VS.PN ---
Subjective POD #: 3 Procedure(s): L iliofem, fem-AT (cryo), excision of bypass, re-do bypass Subjective/Hospital Course Doing well Pain reasonably controlled. Foot feels ok C/o not liking food and being unsteady on her feet Objective Vitals/I&O Date Time Temp Pulse Resp B/P Pulse Ox O2 Delivery O2 Flow Rate FiO2 04/04/17 06:30 64 04/04/17 05:24 65 04/04/17 04:02 69 04/04/17 03:18 92 Room Air 04/04/17 03:18 98.5 71 18 139/67 92 04/04/17 03:04 68 04/04/17 02:30 76 04/04/17 01:00 76 04/04/17 00:00 72 04/03/17 23:50 99.0 75 18 143/67 92 04/03/17 23:50 92 Room Air 04/03/17 23:00 68 04/03/17 22:00 75 04/03/17 21:00 73 04/03/17 20:30 92 Room Air 04/03/17 20:30 99.4 72 18 121/57 92 04/03/17 20:00 69 04/03/17 19:00 72 04/03/17 18:08 73 04/03/17 17:00 72 04/03/17 16:00 69 04/03/17 15:12 64 04/03/17 15:10 93 Room Air 04/03/17 15:00 99.4 67 16 137/65 93 04/03/17 14:00 72 04/03/17 13:00 62 04/03/17 12:00 64 04/03/17 11:00 93 Room Air 04/03/17 11:00 63 04/03/17 11:00 98.5 63 16 135/60 93 04/03/17 10:00 78 04/03/17 09:00 70 04/03/17 08:00 100 Nasal Cannula 1.00 04/03/17 08:00 98.6 65 16 161/73 100 04/03/17 08:00 66 Exam: L groin incision covered with VAC but no fullness appreciated L medial thigh incisions c/d/i L lateral calf incision covered Pulses: palpable lateral leg graft pulse Strong Doppler signal in foot Assessment and Plan Plan 1. Transition hep gtt to therapeutic lovenox. Pt on coumadin but will increase to home dose of 7.5 mg po daily. Check CBC, INR today (pending) and tomorrow. 2. HL IVF 3. Encourage po intake 4. OOB/PT 5. D/C [place] tomorrow morning - replaced yesterday because of retention Discharge Planning await PT recs; likely home Friday at the latest Abram Kessler MD April 04, 2017 07:21
--- NOTE | 2017-04-04 08:22 | HHI.PR ---
Subjective Remarks In the chair. Says she has a lot of pain. Was very difficult to transfer to the chair. Says she doesn't want to go to a SNF. She lives at home with her . No n/v/d/c. Denies chest pain or sob. Objective Vitals Vital Signs Date Time Temp Pulse Resp B/P Pulse Ox O2 Delivery O2 Flow Rate FiO2 04/04/17 06:30 64 04/04/17 05:24 65 04/04/17 04:02 69 04/04/17 03:18 92 Room Air 04/04/17 03:18 98.5 71 18 139/67 92 04/04/17 03:04 68 04/04/17 02:30 76 04/04/17 01:00 76 04/04/17 00:00 72 04/03/17 23:50 99.0 75 18 143/67 92 04/03/17 23:50 92 Room Air 04/03/17 23:00 68 04/03/17 22:00 75 04/03/17 21:00 73 04/03/17 20:30 92 Room Air 04/03/17 20:30 99.4 72 18 121/57 92 04/03/17 20:00 69 04/03/17 19:00 72 04/03/17 18:08 73 04/03/17 17:00 72 04/03/17 16:00 69 04/03/17 15:12 64 04/03/17 15:10 93 Room Air 04/03/17 15:00 99.4 67 16 137/65 93 04/03/17 14:00 72 04/03/17 13:00 62 04/03/17 12:00 64 04/03/17 11:00 93 Room Air 04/03/17 11:00 63 04/03/17 11:00 98.5 63 16 135/60 93 04/03/17 10:00 78 04/03/17 09:00 70 I/O 04/03/17 04/03/17 04/03/17 04/04/17 04/04/17 04/04/17 07:00 15:00 23:00 07:00 15:00 23:00 Intake Total 1352 ml 1112 ml 524 ml Output Total 950 ml 800 ml 1900 ml Balance 402 ml 312 ml -1376 ml Intake Oral 480 ml 720 ml 240 ml IV Total 872 ml 392 ml 284 ml Output Urine Total 950 ml 800 ml 1900 ml # Bowel Movements 0 0 0 Result Diagram: 04/02/17 0439 04/02/17 1909 Imaging Last Impressions Chest X-Ray 03/26/17 1526 Signed Impressions: Service Date/Time: Sunday, March 26, 2017 15:58 - CONCLUSION: 1. Tiny pulmonary nodule within the right upper lung field which is indeterminate. Outpatient CT of the chest may be helpful for further evaluation of the finding if clinically indicated. 2. Minimal streakiness within the left lung base consistent with possible atelectasis. 3. Degenerative changes throughout the thoracic spine. Abram Marie MD Upper Extremity Ultrasound 03/26/17 0000 Signed Impressions: Service Date/Time: Sunday, March 26, 2017 18:30 - CONCLUSION: Negative exam with no evidence of deep venous thrombosis. Mukesh Mike MD Lower Extremity Ultrasound 03/26/17 0000 Signed Impressions: Service Date/Time: Sunday, March 26, 2017 17:46 - CONCLUSION: 1. No evidence of deep venous thrombosis. 2. Left-sided arterial graft no flow. Mukesh Mike MD Objective Remarks GENERAL: Pleasant 61 yo male, well nourished, well developed patient. Alert, oriented, appears in NAD. SKIN: Warm and dry. HEAD: Normocephalic. EYES: No scleral icterus. No injection or drainage. NECK: Supple, trachea midline. No JVD or lymphadenopathy. CARDIOVASCULAR: Regular rate and rhythm without murmurs, gallops, or rubs. RESPIRATORY: Breath sounds equal bilaterally. No accessory muscle use. GASTROINTESTINAL: Abdomen soft, non-tender, nondistended. MUSCULOSKELETAL: No cyanosis, or edema. Left foot warm to touch. BACK: Nontender without obvious deformity. No CVA tenderness. Procedures 03/27/2017 Aortogram with left lower extremity angiograms. 04/01/2017 1. L iliofemoral bypass with 8mm Dacron 2. L fem-AT bypass with cryo vein 3. Redo procedure 4. Excision of old bypass A/P Problem List: (1) PAD (peripheral artery disease) ICD Code: I73.9 Status: Acute (2) DM (diabetes mellitus) ICD Code: E11.9 Status: Acute (3) HTN (hypertension) ICD Code: I10 Status: Acute Assessment and Plan 61 years old female History of PVD worsening foot pain and wounds dry wounds with mild erythema past week- sent over here by her interlocking and signal mechanic for vascular evaluation multiple comorbidities- HTN, DM, hyperlipidemia, CKI Acute on chronic LLE PAD: Vascular surgery ff S/P aortogram with LLE angiogram Continue pain control with tramadol. Empiric IV Ancef for possible overlying cellulitis. Continue statin. Status post left iliofemoral bypass and left femoralAT bypass. History of recent PE on chronic anticoagulation Patient apparently had blood clots while on apixaban does know her oral anticoagulants are probably not a viable options for her Heparin gtt restarted post procedure. We'll start on warfarin today. Start warfarin 4 mg every afternoon and consult pharmacy for warfarin management. Diabetes mellitus: Chronic, stable. Takes JanuMet and glimepiride at home. JanuMet is on hold. Continue glimepiride 2 mg twice a day and sliding scale insulin. CAD/HTN: Chronic, stable. - better readings carvedilol 6.25 mg po bid statin, HCTZ 12.5 daily Lisinopril to 20 mg daily-increased recently Acute Anemia on top of chronic Iron deficiency: Likely chronic iron deficiency anemia on home iron supplementation, continue. no outward signs of bleeding. type and x 2 units standby. Hemoglobin 7.7 on 04/02/2017. Continue Iron to tid S/P IV Iron x 3 Other chronic medical conditions include neuropathy, GERD, depression: Stable at this time and will continue home medications as indicated. Full code, heparin drip. DCT ppx heparin. Coumadin bridge with heparin. Improving. Poss transfer to med/surg floor when cleared by vasc surg. Shabnam Monterroso MD April 04, 2017 08:22
[2017-04-04 08:38] LABS: APTT (PATIENT) 47.6 SEC (24.3-30.1); PROTHROMBIN TIME - PATIENT 11.2 SEC (9.8-11.6)
[2017-04-04] MEDS: SODIUM CHLORIDE 0.9% FLUSH 10 ML FLUSH IV FLUSH SCH ×2 (08:59→21:00)
[2017-04-04] MEDS: ENOXAPARIN SODIUM 80 MG/0.8 ML SYRINGE SQ SCH ×2 (08:59→20:14)
[2017-04-04] MEDS: CARVEDILOL 6.25 MG TAB PO SCH ×2 (08:59→20:14)
[2017-04-04] MEDS: LACTIC ACID (AMMONIUM LACTATE) 12% LOTION 225 GM BTL TOPICAL SCH ×2 (09:00→20:24)
[2017-04-04] MEDS: DOCUSATE SODIUM 100 MG CAP PO SCH ×2 (09:00→20:14)
[2017-04-04] MEDS: GLIMEPIRIDE 2 MG TAB PO SCH ×2 (09:00→16:49)
[2017-04-04] MEDS: ASPIRIN EC 81 MG TABEC PO SCH (09:00)
[2017-04-04] MEDS: HYDROCHLOROTHIAZIDE 25 MG TAB PO SCH (09:00)
[2017-04-04] MEDS: GABAPENTIN 300 MG CAP PO SCH ×3 (09:01→16:49)
[2017-04-04] MEDS: FAMOTIDINE 20 MG TAB PO SCH ×2 (09:01→20:14)
[2017-04-04] MEDS: ESCITALOPRAM OXALATE 20 MG TAB PO SCH (09:02)
[2017-04-04] MEDS: LISINOPRIL 20 MG TAB PO SCH (09:02)
[2017-04-04] MEDS: ACETAMINOPHEN 325 MG TAB PO PRN ×2 (09:32→19:31)
[2017-04-04] MEDS: WARFARIN SOD 7.5 MG TAB PO SCH (16:49)
[2017-04-04] MEDS: ATORVASTATIN 40 MG TAB PO SCH (20:14)
[2017-04-05] VITALS (26 sets, daily range): BP systolic 123–170; BP diastolic 62–81; PULSE 56–73; RESP 16–18; TEMP 98.4–99.1; O2SAT 96–97
[2017-04-05] MEDS: INSULIN ASPART SUPPLEMENTAL SCALE SQ SCH ×4 (06:30→20:36)
[2017-04-05 06:52] LABS: HEMATOCRIT 23.6 % (35.0-46.0); MEAN CORPUSCULAR HEMOGLOBIN 22.2 PG (27.0-34.0); MEAN CORPUSCULAR HGB CONC 30.4 % (32.0-36.0); PLATELET COUNT 238 TH/MM3 (150-450); RED BLOOD COUNT 3.23 MIL/MM3 (4.00-5.30); RED CELL DISTRIBUTION WIDTH 22.2 % (11.6-17.2); WHITE BLOOD COUNT 11.5 TH/MM3 (4.0-11.0)
[2017-04-05 06:59] LABS: INTERNATIONAL NORMALIZED RATIO 1.1 RATIO; PROTHROMBIN TIME - PATIENT 11.8 SEC (9.8-11.6)
[2017-04-05 07:03] LABS: REVIEW FLAG FINAL
--- NOTE | 2017-04-05 07:32 | PD.VS.PN ---
Subjective POD #: 4 Procedure(s): L iliofem, fem-AT (cryo), excision of bypass, re-do bypass Subjective/Hospital Course walked to bathroom yesterday Foot feels great. Doing well Shantanu diet Objective Vitals/I&O Date Time Temp Pulse Resp B/P Pulse Ox O2 Delivery O2 Flow Rate FiO2 04/05/17 05:00 62 04/05/17 04:00 64 04/05/17 03:50 98.7 65 18 149/72 97 04/05/17 03:00 64 04/05/17 02:00 64 04/05/17 01:00 64 04/05/17 00:00 58 04/04/17 23:30 98.9 60 18 125/57 97 04/04/17 23:00 61 04/04/17 22:00 60 04/04/17 21:00 60 04/04/17 20:35 18 04/04/17 20:00 60 04/04/17 19:30 98.9 62 18 151/73 97 04/04/17 19:00 62 04/04/17 18:50 63 04/04/17 17:00 64 04/04/17 16:00 64 04/04/17 15:00 98.1 67 18 109/56 97 04/04/17 15:00 64 04/04/17 14:06 57 04/04/17 13:05 60 04/04/17 12:00 60 04/04/17 11:00 98.3 64 18 133/66 96 04/04/17 11:00 64 04/04/17 10:00 66 04/04/17 09:00 70 04/04/17 08:00 68 04/05/17 04/05/17 04/05/17 06:59 14:59 22:59 Intake Total 720 ml Output Total 750 ml Balance -30 ml Exam: L groin vac in place incisions ok palpable graft pulse foot warm, perfused Laboratory Laboratory Tests Test 04/05/17 04:15 White Blood Count 11.5 Red Blood Count 3.23 Hemoglobin 7.2 Hematocrit 23.6 Mean Corpuscular Volume 73.0 Mean Corpuscular Hemoglobin 22.2 Mean Corpuscular Hemoglobin 30.4 Concent Red Cell Distribution Width 22.2 Platelet Count 238 Mean Platelet Volume 10.0 Prothrombin Time 11.8 Prothromb Time International 1.1 Ratio Activated Partial 35.0 Thromboplast Time Assessment and Plan Plan 1. Therapeutic lovenox to coumadin 2. Hct stable. 3. Encourage po intake 4. OOB/PT 5. D/C Surya today - replaced 2d ago because of retention Discharge Planning likely home Friday Abram Kessler MD April 05, 2017 07:32
[2017-04-05] MEDS: LACTIC ACID (AMMONIUM LACTATE) 12% LOTION 225 GM BTL TOPICAL SCH ×2 (08:21→20:40)
[2017-04-05] MEDS: SODIUM CHLORIDE 0.9% FLUSH 10 ML FLUSH IV FLUSH SCH ×2 (08:22→20:33)
[2017-04-05] MEDS: GABAPENTIN 300 MG CAP PO SCH ×3 (08:22→17:07)
[2017-04-05] MEDS: HYDROCHLOROTHIAZIDE 25 MG TAB PO SCH (08:22)
[2017-04-05] MEDS: ASPIRIN EC 81 MG TABEC PO SCH (08:23)
[2017-04-05] MEDS: FAMOTIDINE 20 MG TAB PO SCH ×2 (08:23→20:32)
[2017-04-05] MEDS: LISINOPRIL 20 MG TAB PO SCH (08:23)
[2017-04-05] MEDS: DOCUSATE SODIUM 100 MG CAP PO SCH ×2 (08:23→20:32)
[2017-04-05] MEDS: CARVEDILOL 6.25 MG TAB PO SCH ×2 (08:24→20:32)
[2017-04-05] MEDS: GLIMEPIRIDE 2 MG TAB PO SCH ×2 (08:24→17:07)
[2017-04-05] MEDS: ESCITALOPRAM OXALATE 20 MG TAB PO SCH (08:24)
[2017-04-05] MEDS: ENOXAPARIN SODIUM 80 MG/0.8 ML SYRINGE SQ SCH ×2 (08:24→20:32)
--- NOTE | 2017-04-05 16:43 | HHI.PR ---
Subjective Remarks The patient is in the chair, she says she has less pain today in her feet. She was able to ambulate with help to the chair. Denies fever or chills. No nausea , vomiting, diarrhea or constipation. Objective Vitals Vital Signs Date Time Temp Pulse Resp B/P Pulse Ox O2 Delivery O2 Flow Rate FiO2 04/05/17 15:00 98.9 64 16 161/76 96 04/05/17 14:00 63 04/05/17 13:00 68 04/05/17 12:00 67 04/05/17 11:00 98.7 60 16 146/71 97 04/05/17 10:00 73 04/05/17 09:00 67 04/05/17 08:00 98.4 62 16 170/81 97 04/05/17 08:00 62 04/05/17 07:00 62 04/05/17 05:00 62 04/05/17 04:00 64 04/05/17 03:50 98.7 65 18 149/72 97 04/05/17 03:00 64 04/05/17 02:00 64 04/05/17 01:00 64 04/05/17 00:00 58 04/04/17 23:30 98.9 60 18 125/57 97 04/04/17 23:00 61 04/04/17 22:00 60 04/04/17 21:00 60 04/04/17 20:35 18 04/04/17 20:00 60 04/04/17 19:30 98.9 62 18 151/73 97 04/04/17 19:00 62 04/04/17 18:50 63 04/04/17 17:00 64 I/O 04/04/17 04/04/17 04/04/17 04/05/17 04/05/17 04/05/17 07:00 15:00 23:00 07:00 15:00 23:00 Intake Total 524 ml 490 ml 720 ml Output Total 1900 ml 525 ml 750 ml Balance -1376 ml -35 ml -30 ml Intake Oral 240 ml 480 ml 720 ml IV Total 284 ml 10 ml Output Urine Total 1900 ml 525 ml 750 ml # Bowel Movements 0 1 Result Diagram: 04/05/17 0415 04/02/17 1909 Objective Remarks GENERAL: Pleasant 61 yo male, well nourished, well developed patient. Alert, oriented, appears in NAD. SKIN: Warm and dry. HEAD: Normocephalic. EYES: No scleral icterus. No injection or drainage. NECK: Supple, trachea midline. No JVD or lymphadenopathy. CARDIOVASCULAR: Regular rate and rhythm without murmurs, gallops, or rubs. RESPIRATORY: Breath sounds equal bilaterally. No accessory muscle use. GASTROINTESTINAL: Abdomen soft, non-tender, nondistended. MUSCULOSKELETAL: No cyanosis, or edema. Left foot warm to touch. BACK: Nontender without obvious deformity. No CVA tenderness. Procedures 03/27/2017 Aortogram with left lower extremity angiograms. 04/01/2017 1. L iliofemoral bypass with 8mm Dacron 2. L fem-AT bypass with cryo vein 3. Redo procedure 4. Excision of old bypass A/P Problem List: (1) PAD (peripheral artery disease) ICD Code: I73.9 Status: Acute (2) DM (diabetes mellitus) ICD Code: E11.9 Status: Acute (3) HTN (hypertension) ICD Code: I10 Status: Acute Assessment and Plan 61 years old female History of PVD worsening foot pain and wounds dry wounds with mild erythema past week- sent over here by her client sales and service officer for vascular evaluation multiple comorbidities- HTN, DM, hyperlipidemia, CKI Acute on chronic LLE PAD: Vascular surgery ff S/P aortogram with LLE angiogram Continue pain control with tramadol. Empiric IV Ancef for possible overlying cellulitis. Continue statin. Status post left iliofemoral bypass and left femoralAT bypass. History of recent PE on chronic anticoagulation Patient apparently had blood clots while on apixaban does know her oral anticoagulants are probably not a viable options for her Heparin gtt restarted post procedure. We'll start on warfarin today. Start warfarin 4 mg every afternoon and consult pharmacy for warfarin management. Diabetes mellitus: Chronic, stable. Takes JanuMet and glimepiride at home. JanuMet is on hold. Continue glimepiride 2 mg twice a day and sliding scale insulin. CAD/HTN: Chronic, stable. - better readings carvedilol 6.25 mg po bid statin, HCTZ 12.5 daily Lisinopril to 20 mg daily-increased recently Acute Anemia on top of chronic Iron deficiency: Likely chronic iron deficiency anemia on home iron supplementation, continue. no outward signs of bleeding. type and x 2 units standby. Hemoglobin 7.7 on 04/02/2017. Continue Iron to tid S/P IV Iron x 3 Other chronic medical conditions include neuropathy, GERD, depression: Stable at this time and will continue home medications as indicated. Full code, heparin drip. DCT ppx heparin. Coumadin bridge with heparin. Improving. Poss transfer to med/surg floor when cleared by vasc surg. Per Dr. Camacho keep the patient in [facility] for now. Shabnam Monterroso MD April 05, 2017 16:43
[2017-04-05] MEDS: WARFARIN SOD 7.5 MG TAB PO SCH (17:00)
[2017-04-05] MEDS: cloNIDine HCL 0.1 MG TAB PO PRN (17:07)
[2017-04-05] MEDS: ACETAMINOPHEN 325 MG TAB PO PRN (17:12)
[2017-04-05 19:23] LABS: FERRITIN 99 NG/ML (8-252); TRANSFERRIN IRON PROFILE 160 MG/DL (200-360)
[2017-04-05] MEDS: ATORVASTATIN 40 MG TAB PO SCH (20:32)
[2017-04-06] VITALS (25 sets, daily range): BP systolic 124–174; BP diastolic 57–84; PULSE 56–76; RESP 16–18; TEMP 98.3–99.1; O2SAT 97–98
[2017-04-06 04:43] LABS: AUTOMATED NEUTROPHIL # 3.9 TH/MM3 (1.8-7.7); BASOPHIL # 0.1 TH/MM3 (0-0.2); EOSINOPHIL # 0.3 TH/MM3 (0-0.4); EOSINOPHIL % 3.4 % (0.0-4.0); HEMATOCRIT 22.8 % (35.0-46.0); LYMPH % 35.8 % (9.0-44.0); MEAN CELL VOLUME 73.5 FL (80.0-100.0); MEAN CORPUSCULAR HEMOGLOBIN 22.9 PG (27.0-34.0); MEAN CORPUSCULAR HGB CONC 31.1 % (32.0-36.0); MONO % 13.9 % (0.0-8.0); NEUT % 45.9 % (16.0-70.0); PLATELET COUNT 269 TH/MM3 (150-450); RED BLOOD COUNT 3.11 MIL/MM3 (4.00-5.30); RED CELL DISTRIBUTION WIDTH 21.7 % (11.6-17.2); WHITE BLOOD COUNT 8.5 TH/MM3 (4.0-11.0)
[2017-04-06 04:49] LABS: HEMO FLAGS AUTO DIFF
[2017-04-06 04:56] LABS: APTT (PATIENT) 37.2 SEC (24.3-30.1); INTERNATIONAL NORMALIZED RATIO 1.5 RATIO; PROTHROMBIN TIME - PATIENT 16.5 SEC (9.8-11.6)
[2017-04-06 05:03] LABS: POTASSIUM 4.1 MEQ/L (3.5-5.1)
[2017-04-06] MEDS: INSULIN ASPART SUPPLEMENTAL SCALE SQ SCH ×4 (06:02→20:53)
--- NOTE | 2017-04-06 07:20 | HHI.PR ---
Objective Vitals Vital Signs Date Time Temp Pulse Resp B/P Pulse Ox O2 Delivery O2 Flow Rate FiO2 04/06/17 03:10 99.1 59 16 124/62 97 04/05/17 23:02 99.1 56 16 140/70 96 04/05/17 19:10 99.1 56 16 123/62 96 04/05/17 18:00 61 04/05/17 17:00 68 04/05/17 16:00 66 04/05/17 15:00 98.9 64 16 161/76 96 04/05/17 14:00 63 04/05/17 13:00 68 04/05/17 12:00 67 04/05/17 11:00 98.7 60 16 146/71 97 04/05/17 10:00 73 04/05/17 09:00 67 04/05/17 08:00 98.4 62 16 170/81 97 04/05/17 08:00 62 I/O 04/05/17 04/05/17 04/05/17 04/06/17 04/06/17 04/06/17 07:00 15:00 23:00 07:00 15:00 23:00 Intake Total 720 ml 700 ml 1200 ml Output Total 750 ml 300 ml 950 ml Balance -30 ml 400 ml 250 ml Intake Oral 720 ml 700 ml 1200 ml Output Urine Total 750 ml 300 ml 950 ml # Bowel Movements 1 Result Diagram: 04/06/17 0341 04/06/17 0341 Objective Remarks GENERAL: Pleasant 61 yo male, well nourished, well developed patient. Alert, oriented, appears in NAD. SKIN: Warm and dry. HEAD: Normocephalic. EYES: No scleral icterus. No injection or drainage. NECK: Supple, trachea midline. No JVD or lymphadenopathy. CARDIOVASCULAR: Regular rate and rhythm without murmurs, gallops, or rubs. RESPIRATORY: Breath sounds equal bilaterally. No accessory muscle use. GASTROINTESTINAL: Abdomen soft, non-tender, nondistended. MUSCULOSKELETAL: No cyanosis, or edema. Left foot warm to touch. BACK: Nontender without obvious deformity. No CVA tenderness. Procedures 03/27/2017 Aortogram with left lower extremity angiograms. 04/01/2017 1. L iliofemoral bypass with 8mm Dacron 2. L fem-AT bypass with cryo vein 3. Redo procedure 4. Excision of old bypass A/P Problem List: (1) PAD (peripheral artery disease) ICD Code: I73.9 Status: Acute (2) DM (diabetes mellitus) ICD Code: E11.9 Status: Acute (3) HTN (hypertension) ICD Code: I10 Status: Acute Assessment and Plan 61 years old female History of PVD worsening foot pain and wounds dry wounds with mild erythema past week- sent over here by her medicare insurance specialist for vascular evaluation multiple comorbidities- HTN, DM, hyperlipidemia, CKI Acute on chronic LLE PAD: Vascular surgery ff S/P aortogram with LLE angiogram Continue pain control with tramadol. Empiric IV Ancef for possible overlying cellulitis. Continue statin. Status post left iliofemoral bypass and left femoralAT bypass. History of recent PE on chronic anticoagulation Patient apparently had blood clots while on apixaban does know her oral anticoagulants are probably not a viable options for her Heparin gtt restarted post procedure. We'll start on warfarin today. Start warfarin 4 mg every afternoon and consult pharmacy for warfarin management. Diabetes mellitus: Chronic, stable. Takes JanuMet and glimepiride at home. JanuMet is on hold. Continue glimepiride 2 mg twice a day and sliding scale insulin. CAD/HTN: Chronic, stable. - better readings carvedilol 6.25 mg po bid statin, HCTZ 12.5 daily Lisinopril to 20 mg daily-increased recently Acute Anemia on top of chronic Iron deficiency: Likely chronic iron deficiency anemia on home iron supplementation, continue. no outward signs of bleeding. type and x 2 units standby. Hemoglobin 7.7 on 04/02/2017. Continue Iron to tid S/P IV Iron x 3 Other chronic medical conditions include neuropathy, GERD, depression: Stable at this time and will continue home medications as indicated. Full code, heparin drip. DCT ppx heparin. Coumadin bridge with heparin. Improving. Poss transfer to med/surg floor when cleared by vasc surg. Per Dr. Camacho keep the patient in [facility] for now. Shabnam Monterroso MD April 06, 2017 07:20
[2017-04-06 07:47] LABS: OVALOCYTES 1+ (NORMAL); SCAN/DIFF AUTO DIFF CONFIRMED
--- NOTE | 2017-04-06 08:27 | HHI.PR ---
Subjective Remarks At the margin of the bed. Says she has pain in her left foot especially with ambulation. No fevr or chills overnight./ No n/v/d/c. Denies chest pain , sob, palpitations, diaphoresis. Objective Vitals Vital Signs Date Time Temp Pulse Resp B/P Pulse Ox O2 Delivery O2 Flow Rate FiO2 04/06/17 08:00 65 04/06/17 07:00 65 04/06/17 07:00 98.4 65 18 174/84 97 04/06/17 05:00 58 04/06/17 04:00 58 04/06/17 03:10 99.1 59 16 124/62 97 04/06/17 03:00 74 04/06/17 02:00 56 04/06/17 01:00 56 04/06/17 00:00 56 04/05/17 23:02 99.1 56 16 140/70 96 04/05/17 23:00 58 04/05/17 22:00 61 04/05/17 21:00 61 04/05/17 20:00 56 04/05/17 19:10 99.1 56 16 123/62 96 04/05/17 19:00 57 04/05/17 18:00 61 04/05/17 17:00 68 04/05/17 16:00 66 04/05/17 15:00 98.9 64 16 161/76 96 04/05/17 14:00 63 04/05/17 13:00 68 04/05/17 12:00 67 04/05/17 11:00 98.7 60 16 146/71 97 04/05/17 10:00 73 04/05/17 09:00 67 I/O 04/05/17 04/05/17 04/05/17 04/06/17 04/06/17 04/06/17 07:00 15:00 23:00 07:00 15:00 23:00 Intake Total 720 ml 700 ml 1200 ml Output Total 750 ml 300 ml 950 ml Balance -30 ml 400 ml 250 ml Intake Oral 720 ml 700 ml 1200 ml Output Urine Total 750 ml 300 ml 950 ml # Bowel Movements 1 Result Diagram: 04/06/17 0341 04/06/17 0341 Objective Remarks GENERAL: Pleasant 61 yo male, well nourished, well developed patient. Alert, oriented, appears in NAD. SKIN: Warm and dry. HEAD: Normocephalic. EYES: No scleral icterus. No injection or drainage. NECK: Supple, trachea midline. No JVD or lymphadenopathy. CARDIOVASCULAR: Regular rate and rhythm without murmurs, gallops, or rubs. RESPIRATORY: Breath sounds equal bilaterally. No accessory muscle use. GASTROINTESTINAL: Abdomen soft, non-tender, nondistended. MUSCULOSKELETAL: No cyanosis, or edema. Left foot warm to touch. BACK: Nontender without obvious deformity. No CVA tenderness. Procedures 03/27/2017 Aortogram with left lower extremity angiograms. 04/01/2017 1. L iliofemoral bypass with 8mm Dacron 2. L fem-AT bypass with cryo vein 3. Redo procedure 4. Excision of old bypass A/P Problem List: (1) PAD (peripheral artery disease) ICD Code: I73.9 Status: Acute (2) DM (diabetes mellitus) ICD Code: E11.9 Status: Acute (3) HTN (hypertension) ICD Code: I10 Status: Acute Assessment and Plan 61 years old female History of PVD worsening foot pain and wounds dry wounds with mild erythema past week- sent over here by her wet pan mixer for vascular evaluation multiple comorbidities- HTN, DM, hyperlipidemia, CKI Acute on chronic LLE PAD: Vascular surgery ff S/P aortogram with LLE angiogram Continue pain control with tramadol. Empiric IV Ancef for possible overlying cellulitis. Continue statin. Status post left iliofemoral bypass and left femoralAT bypass. History of recent PE on chronic anticoagulation Patient apparently had blood clots while on apixaban does know her oral anticoagulants are probably not a viable options for her Heparin gtt restarted post procedure. We'll start on warfarin today. Start warfarin 4 mg every afternoon and consult pharmacy for warfarin management. Diabetes mellitus: Chronic, stable. Takes JanuMet and glimepiride at home. JanuMet is on hold. Continue glimepiride 2 mg twice a day and sliding scale insulin. CAD/HTN: Chronic, stable. - better readings carvedilol 6.25 mg po bid statin, HCTZ 12.5 daily Lisinopril to 20 mg daily-increased recently Acute Anemia on top of chronic Iron deficiency: Likely chronic iron deficiency anemia on home iron supplementation, continue. no outward signs of bleeding. type and x 2 units standby. Hemoglobin 7.7 on 04/02/2017. Continue Iron to tid S/P IV Iron x 3 Other chronic medical conditions include neuropathy, GERD, depression: Stable at this time and will continue home medications as indicated. Full code, heparin drip. DCT ppx heparin. Coumadin bridge with heparin. Improving. Poss transfer to med/surg floor when cleared by vasc surg. Per Dr. Camacho keep the patient in [facility] for now. Shabnam Monterroso MD April 06, 2017 08:27
[2017-04-06] MEDS: HYDROCHLOROTHIAZIDE 25 MG TAB PO SCH (08:42)
[2017-04-06] MEDS: CARVEDILOL 6.25 MG TAB PO SCH ×2 (08:42→20:45)
[2017-04-06] MEDS: LISINOPRIL 20 MG TAB PO SCH (08:42)
[2017-04-06] MEDS: FAMOTIDINE 20 MG TAB PO SCH ×2 (08:42→20:45)
[2017-04-06] MEDS: ESCITALOPRAM OXALATE 20 MG TAB PO SCH (08:42)
[2017-04-06] MEDS: DOCUSATE SODIUM 100 MG CAP PO SCH ×2 (08:42→20:45)
[2017-04-06] MEDS: ASPIRIN EC 81 MG TABEC PO SCH (08:43)
[2017-04-06] MEDS: GLIMEPIRIDE 2 MG TAB PO SCH ×2 (08:43→18:16)
[2017-04-06] MEDS: ENOXAPARIN SODIUM 80 MG/0.8 ML SYRINGE SQ SCH ×2 (08:43→20:45)
[2017-04-06] MEDS: SODIUM CHLORIDE 0.9% FLUSH 10 ML FLUSH IV FLUSH SCH ×2 (08:43→20:45)
[2017-04-06] MEDS: GABAPENTIN 300 MG CAP PO SCH ×3 (08:43→18:16)
[2017-04-06] MEDS: ACETAMINOPHEN 325 MG TAB PO PRN (08:44)
[2017-04-06] MEDS: LACTIC ACID (AMMONIUM LACTATE) 12% LOTION 225 GM BTL TOPICAL SCH ×2 (08:45→21:00)
--- NOTE | 2017-04-06 13:50 | PD.VS.PN ---
Subjective POD #: 5 Procedure(s): L iliofem, fem-AT (cryo), excision of bypass, re-do bypass Subjective/Hospital Course walked with walker Foot feels great. Doing well Shantanu diet Objective Vitals/I&O Date Time Temp Pulse Resp B/P Pulse Ox O2 Delivery O2 Flow Rate FiO2 04/06/17 13:00 56 04/06/17 12:00 60 04/06/17 11:00 98.5 59 17 139/68 98 04/06/17 11:00 60 04/06/17 10:06 18 04/06/17 10:00 64 04/06/17 09:00 70 04/06/17 08:00 65 04/06/17 07:00 65 04/06/17 07:00 98.4 65 18 174/84 97 04/06/17 05:00 58 04/06/17 04:00 58 04/06/17 03:10 99.1 59 16 124/62 97 04/06/17 03:00 74 04/06/17 02:00 56 04/06/17 01:00 56 04/06/17 00:00 56 04/05/17 23:02 99.1 56 16 140/70 96 04/05/17 23:00 58 04/05/17 22:00 61 04/05/17 21:00 61 04/05/17 20:00 56 04/05/17 19:10 99.1 56 16 123/62 96 04/05/17 19:00 57 04/05/17 18:00 61 04/05/17 17:00 68 04/05/17 16:00 66 04/05/17 15:00 98.9 64 16 161/76 96 04/05/17 14:00 63 04/06/17 04/06/17 04/06/17 07:00 15:00 23:00 Intake Total 1200 ml Output Total 950 ml Balance 250 ml Exam: L groin incision and all leg incisions look good foot warm palpable graft pulse Laboratory Laboratory Tests Test 04/05/17 04/06/17 18:48 03:41 Iron Level 24 Total Iron Binding Capacity 224 Percent Iron Saturation 10.7 Ferritin 99 White Blood Count 8.5 Red Blood Count 3.11 Hemoglobin 7.1 Hematocrit 22.8 Mean Corpuscular Volume 73.5 Mean Corpuscular Hemoglobin 22.9 Mean Corpuscular Hemoglobin 31.1 Concent Red Cell Distribution Width 21.7 Platelet Count 269 Mean Platelet Volume 9.9 Neutrophils (%) (Auto) 45.9 Lymphocytes (%) (Auto) 35.8 Monocytes (%) (Auto) 13.9 Eosinophils (%) (Auto) 3.4 Basophils (%) (Auto) 1.0 Neutrophils # (Auto) 3.9 Lymphocytes # (Auto) 3.0 Monocytes # (Auto) 1.2 Eosinophils # (Auto) 0.3 Basophils # (Auto) 0.1 CBC Comment AUTO DIFF Differential Comment AUTO DIFF CONFIRMED Ovalocytes 1+ Prothrombin Time 16.5 Prothromb Time International 1.5 Ratio Activated Partial 37.2 Thromboplast Time Sodium Level 143 Potassium Level 4.1 Chloride Level 108 Carbon Dioxide Level 28.0 Anion Gap 7 Blood Urea Nitrogen 15 Creatinine 0.90 Estimat Glomerular Filtration 64 Rate Random Glucose 113 Calcium Level 8.4 Assessment and Plan Plan 1. Therapeutic lovenox to coumadin 2. PT - needs to be able to climb stairs (N=16) to go home 3. Ready for d/c from vasc surgery standpoint when ok with PT Discharge Planning likely home Friday Abram Kessler MD April 06, 2017 13:50
[2017-04-06] MEDS: WARFARIN SOD 7.5 MG TAB PO SCH (15:56)
[2017-04-06] MEDS: ATORVASTATIN 40 MG TAB PO SCH (20:45)
[2017-04-07] VITALS (11 sets, daily range): BP systolic 148–179; BP diastolic 73–84; PULSE 57–72; RESP 16–18; TEMP 98–98.7; O2SAT 97–98
[2017-04-07] MEDS: ACETAMINOPHEN 325 MG TAB PO PRN (01:50)
[2017-04-07] MEDS: INSULIN ASPART SUPPLEMENTAL SCALE SQ SCH ×2 (06:40→12:11)
[2017-04-07 06:45] LABS: HEMATOCRIT 25.2 % (35.0-46.0); MEAN CORPUSCULAR HGB CONC 31.5 % (32.0-36.0); PLATELET COUNT 318 TH/MM3 (150-450); RED BLOOD COUNT 3.45 MIL/MM3 (4.00-5.30); RED CELL DISTRIBUTION WIDTH 21.3 % (11.6-17.2); WHITE BLOOD COUNT 8.5 TH/MM3 (4.0-11.0)
[2017-04-07 06:53] LABS: REVIEW FLAG FINAL
[2017-04-07 07:07] LABS: APTT (PATIENT) 36.5 SEC (24.3-30.1); PROTHROMBIN TIME - PATIENT 22.6 SEC (9.8-11.6)
--- NOTE | 2017-04-07 07:12 | HHI.PR ---
Subjective Remarks Patient is seen in a chair, says swelling redness of the leg is improved. She was able to walk with the shoe on. She has less pain. No chest pain or shortness of breath no nausea or vomiting. No fever or chills overnight. Says she is being to a [facility] before she doesn't want to go to rehabilitation. She will prefer to go home with home health. INR of 2 might consider DC patient if cleared by Dr Kessler. Objective Vitals Vital Signs Date Time Temp Pulse Resp B/P Pulse Ox O2 Delivery O2 Flow Rate FiO2 04/07/17 05:00 58 04/07/17 04:00 60 04/07/17 04:00 98.6 62 16 148/73 98 04/07/17 03:00 60 04/07/17 02:00 64 04/07/17 01:00 66 04/07/17 00:00 66 04/07/17 00:00 98.7 64 16 166/82 98 04/06/17 23:00 64 04/06/17 22:00 74 04/06/17 21:00 76 04/06/17 20:00 60 04/06/17 19:40 98.7 65 16 147/57 98 04/06/17 19:00 63 04/06/17 18:00 67 04/06/17 17:00 63 04/06/17 16:00 63 04/06/17 15:00 98.3 62 18 151/75 98 04/06/17 15:00 62 04/06/17 14:00 62 04/06/17 13:00 56 04/06/17 12:00 60 04/06/17 11:00 98.5 59 17 139/68 98 04/06/17 11:00 60 04/06/17 10:06 18 04/06/17 10:00 64 04/06/17 09:00 70 04/06/17 08:00 65 I/O 04/06/17 04/06/17 04/06/17 04/07/17 04/07/17 04/07/17 07:00 15:00 23:00 07:00 15:00 23:00 Intake Total 1200 ml 630 ml 240 ml Output Total 950 ml 550 ml 1500 ml Balance 250 ml 80 ml -1260 ml Intake Oral 1200 ml 630 ml 240 ml Output Urine Total 950 ml 550 ml 1500 ml # Bowel Movements 1 Result Diagram: 04/07/17 0620 04/06/17 0341 Imaging Last Impressions Chest X-Ray 03/26/17 1526 Signed Impressions: Service Date/Time: Sunday, March 26, 2017 15:58 - CONCLUSION: 1. Tiny pulmonary nodule within the right upper lung field which is indeterminate. Outpatient CT of the chest may be helpful for further evaluation of the finding if clinically indicated. 2. Minimal streakiness within the left lung base consistent with possible atelectasis. 3. Degenerative changes throughout the thoracic spine. Abram Marie MD Upper Extremity Ultrasound 03/26/17 0000 Signed Impressions: Service Date/Time: Sunday, March 26, 2017 18:30 - CONCLUSION: Negative exam with no evidence of deep venous thrombosis. Mukesh Mike MD Lower Extremity Ultrasound 03/26/17 0000 Signed Impressions: Service Date/Time: Sunday, March 26, 2017 17:46 - CONCLUSION: 1. No evidence of deep venous thrombosis. 2. Left-sided arterial graft no flow. Mukesh Mike MD Objective Remarks GENERAL: Pleasant 61 yo male, well nourished, well developed patient. Alert, oriented, appears in NAD. SKIN: Warm and dry. HEAD: Normocephalic. EYES: No scleral icterus. No injection or drainage. NECK: Supple, trachea midline. No JVD or lymphadenopathy. CARDIOVASCULAR: Regular rate and rhythm without murmurs, gallops, or rubs. RESPIRATORY: Breath sounds equal bilaterally. No accessory muscle use. GASTROINTESTINAL: Abdomen soft, non-tender, nondistended. MUSCULOSKELETAL: No cyanosis, or edema. Left foot warm to touch. BACK: Nontender without obvious deformity. No CVA tenderness. Procedures 03/27/2017 Aortogram with left lower extremity angiograms. 04/01/2017 1. L iliofemoral bypass with 8mm Dacron 2. L fem-AT bypass with cryo vein 3. Redo procedure 4. Excision of old bypass A/P Problem List: (1) PAD (peripheral artery disease) ICD Code: I73.9 Status: Acute (2) DM (diabetes mellitus) ICD Code: E11.9 Status: Acute (3) HTN (hypertension) ICD Code: I10 Status: Acute Assessment and Plan 61 years old female History of PVD worsening foot pain and wounds dry wounds with mild erythema past week- sent over here by her general operations manager for vascular evaluation multiple comorbidities- HTN, DM, hyperlipidemia, CKI Acute on chronic LLE PAD: Vascular surgery ff S/P aortogram with LLE angiogram Continue pain control with tramadol. Empiric IV Ancef for possible overlying cellulitis. Continue statin. Status post left iliofemoral bypass and left femoralAT bypass. History of recent PE on chronic anticoagulation Patient apparently had blood clots while on apixaban does know her oral anticoagulants are probably not a viable options for her Heparin gtt restarted post procedure. On warfarin . On warfarin 7.5 mg every afternoon, consult pharmacy for warfarin management. Discharge home on warfarin 7.5 mg. Patient to follow-up as outpatient and check the INR Monitor INR Diabetes mellitus: Chronic, stable. Takes JanuMet and glimepiride at home. JanuMet is on hold. Continue glimepiride 2 mg twice a day and sliding scale insulin. CAD/HTN: Chronic, stable. - better readings carvedilol 6.25 mg po bid statin, HCTZ 12.5 daily Lisinopril to 20 mg daily-increased recently Acute Anemia on top of chronic Iron deficiency: Likely chronic iron deficiency anemia on home iron supplementation, continue. no outward signs of bleeding. type and x 2 units standby. Hemoglobin 7.7 on 04/02/2017. Continue Iron to tid S/P IV Iron x 3 Other chronic medical conditions include neuropathy, GERD, depression: Stable at this time and will continue home medications as indicated. Full code, heparin drip. DCT ppx heparin. Coumadin bridge with heparin. Improving. INR is 2 , consider DC patient if OK per Dr Kessler Plan to DC home with home health Case management consulted for DC plan. Shabnam Monterroso MD April 07, 2017 07:12
[2017-04-07] MEDS ORDERED: ASPI81TA11 PO (07:15)
[2017-04-07] MEDS ORDERED: ESCI20TA PO (07:15)
[2017-04-07] MEDS ORDERED: TRAM-492 PO (07:15)
--- NOTE | 2017-04-07 07:16 | HHI.DS ---
Discharge Summary Admission Date March 26, 2017 at 17:13 Discharge Date: April 07, 2017 Admitting Diagnosis severe peripheral artery disease (1) PAD (peripheral artery disease) ICD Code: I73.9 Diagnosis: Principal (2) DM (diabetes mellitus) ICD Code: E11.9 Diagnosis: Secondary (3) HTN (hypertension) ICD Code: I10 Diagnosis: Secondary Procedures 03/27/2017 Aortogram with left lower extremity angiograms. 04/01/2017 1. L iliofemoral bypass with 8mm Dacron 2. L fem-AT bypass with cryo vein 3. Redo procedure 4. Excision of old bypass Brief History - From Admission 61-year-old female with a past medical history of PAD, CAD, CVA, DM, HTN, GERD, neuropathy, HLD, depression, PE, DVT who was sent by her distribution field technician for PAD. The patient has an extensive history of left lower extremity vascular disease including stent placement and bypass. She states that she is having claudication symptoms in her left lower extremity for quite some time. She states that over the past 2 weeks she's been noticing skin peeling on her left foot. She complains of pain in her heel and the ball of her foot when she tries to bear weight. She has noticed some mild swelling and erythema on the sole of her foot. She denies any fevers or chills. Her distribution field technician referred her to [facility] to be evaluated by Dr. Kessler with vascular surgery. Vascular surgery is planning on angiogram tomorrow. She has peripheral neuropathy with numbness in her feet. The patient denies any lightheadedness, dizziness, vision changes, headache, chest pain, shortness of breath, nausea, vomiting, diarrhea, constipation, dysuria or urinary frequency. The patient has a history of DVT and was diagnosed with PE in November and has been on Coumadin. CBC/BMP: 04/07/17 0620 04/06/17 0341 Significant Findings Laboratory Tests Test 04/04/17 04/05/17 04/05/17 04/06/17 07:25 04:15 18:48 03:41 Activated Partial 47.6 SEC 35.0 SEC 37.2 SEC Thromboplast Time (24.3-30.1) (24.3-30.1) (24.3-30.1) White Blood Count 11.5 TH/MM3 (4.0-11.0) Red Blood Count 3.23 MIL/MM3 3.11 MIL/MM3 (4.00-5.30) (4.00-5.30) Hemoglobin 7.2 GM/DL 7.1 GM/DL (11.6-15.3) (11.6-15.3) Hematocrit 23.6 % 22.8 % (35.0-46.0) (35.0-46.0) Mean Corpuscular Volume 73.0 FL 73.5 FL (80.0-100.0) (80.0-100.0) Mean Corpuscular Hemoglobin 22.2 PG 22.9 PG (27.0-34.0) (27.0-34.0) Mean Corpuscular Hemoglobin 30.4 % 31.1 % Concent (32.0-36.0) (32.0-36.0) Red Cell Distribution Width 22.2 % 21.7 % (11.6-17.2) (11.6-17.2) Prothrombin Time 11.8 SEC 16.5 SEC (9.8-11.6) (9.8-11.6) Iron Level 24 MCG/DL (50-170) Total Iron Binding Capacity 224 MCG/DL (250-450) Percent Iron Saturation 10.7 % (20-50) Monocytes (%) (Auto) 13.9 % (0.0-8.0) Monocytes # (Auto) 1.2 TH/MM3 (0-0.9) Ovalocytes 1+ (NORMAL) Chloride Level 108 MEQ/L (98-107) Estimat Glomerular Filtration 64 ML/MIN (>89) Rate Random Glucose 113 MG/DL (74-106) Calcium Level 8.4 MG/DL (8.5-10.1) Test 04/07/17 06:20 Red Blood Count 3.45 MIL/MM3 (4.00-5.30) Hemoglobin 7.9 GM/DL (11.6-15.3) Hematocrit 25.2 % (35.0-46.0) Mean Corpuscular Volume 73.0 FL (80.0-100.0) Mean Corpuscular Hemoglobin 23.0 PG (27.0-34.0) Mean Corpuscular Hemoglobin 31.5 % Concent (32.0-36.0) Red Cell Distribution Width 21.3 % (11.6-17.2) Prothrombin Time 22.6 SEC (9.8-11.6) Activated Partial 36.5 SEC Thromboplast Time (24.3-30.1) Imaging Last Impressions Chest X-Ray 03/26/17 1526 Signed Impressions: Service Date/Time: Sunday, March 26, 2017 15:58 - CONCLUSION: 1. Tiny pulmonary nodule within the right upper lung field which is indeterminate. Outpatient CT of the chest may be helpful for further evaluation of the finding if clinically indicated. 2. Minimal streakiness within the left lung base consistent with possible atelectasis. 3. Degenerative changes throughout the thoracic spine. Abram Marie MD Upper Extremity Ultrasound 03/26/17 0000 Signed Impressions: Service Date/Time: Sunday, March 26, 2017 18:30 - CONCLUSION: Negative exam with no evidence of deep venous thrombosis. Mukesh Mike MD Lower Extremity Ultrasound 03/26/17 0000 Signed Impressions: Service Date/Time: Sunday, March 26, 2017 17:46 - CONCLUSION: 1. No evidence of deep venous thrombosis. 2. Left-sided arterial graft no flow. Mukesh Mike MD PE at Discharge GENERAL: Pleasant 61 yo male, well nourished, well developed patient. Alert, oriented, appears in NAD. SKIN: Warm and dry. HEAD: Normocephalic. EYES: No scleral icterus. No injection or drainage. NECK: Supple, trachea midline. No JVD or lymphadenopathy. CARDIOVASCULAR: Regular rate and rhythm without murmurs, gallops, or rubs. RESPIRATORY: Breath sounds equal bilaterally. No accessory muscle use. GASTROINTESTINAL: Abdomen soft, non-tender, nondistended. MUSCULOSKELETAL: No cyanosis, or edema. Left foot warm to touch. BACK: Nontender without obvious deformity. No CVA tenderness. Hospital Course 61 years old female History of PVD worsening foot pain and wounds dry wounds with mild erythema past week- sent over here by her distribution field technician for vascular evaluation multiple comorbidities- HTN, DM, hyperlipidemia, CKI Acute on chronic LLE PAD: Vascular surgery ff S/P aortogram with LLE angiogram Continue pain control with tramadol. Empiric IV Ancef for possible overlying cellulitis. Continue statin. Status post left iliofemoral bypass and left femoralAT bypass. History of recent PE on chronic anticoagulation Patient apparently had blood clots while on apixaban does know her oral anticoagulants are probably not a viable options for her Heparin gtt restarted post procedure. On warfarin . On warfarin 7.5 mg every afternoon, consult pharmacy for warfarin management. Discharge home on warfarin 7.5 mg. Patient to follow-up as outpatient and check the INR Monitor INR Diabetes mellitus: Chronic, stable. Takes JanuMet and glimepiride at home. JanuMet is on hold. Continue glimepiride 2 mg twice a day and sliding scale insulin. CAD/HTN: Chronic, stable. - better readings carvedilol 6.25 mg po bid statin, HCTZ 12.5 daily Lisinopril to 20 mg daily-increased recently Acute Anemia on top of chronic Iron deficiency: Likely chronic iron deficiency anemia on home iron supplementation, continue. no outward signs of bleeding. type and x 2 units standby. Hemoglobin 7.7 on 04/02/2017. Continue Iron to tid S/P IV Iron x 3 Other chronic medical conditions include neuropathy, GERD, depression: Stable at this time and will continue home medications as indicated. Full code, heparin drip. DCT ppx heparin. Coumadin bridge with heparin. Improving. INR is 2 . DC home with home health in stable condition. INR is 2 , patient to continue coumadin at DC, to monitor INR levela as OP. Patient to followup as OP with PCP and consultants. To work with PT to further improve. Pt Condition on Discharge: Stable Discharge Disposition: Disch w/ Home Health Serv Discharge Time: > 30 minutes Discharge Instructions DIET: Follow Instructions for: Heart Healthy Diet, Diabetic Diet, Coumadin ( Warfarin) Diet Activities you can perform: Weight Bearing as Shantanu Follow up Referrals: PCP Follow-up - 3-5 Days Vascular Surgery - 1 Week with Abram Kessler MD New Medications: Aspirin DR (Aspirin EC) 81 Mg Tabdr 81 MG PO DAILY Blood Clot Prevention #30 TAB Continued Medications: Atorvastatin (Atorvastatin) 40 Mg Tab 40 MG PO HS Cholesterol Management #30 Ref 0 TAB Carvedilol (Carvedilol) 3.125 Mg Tab 3.125 MG PO BID #60 Ref 0 TAB Escitalopram (Escitalopram) 20 Mg Tab 20 MG PO DAILY Anxiety and/or Insomnia #30 Ref 0 TAB (This prescription has been renewed) Ferrous Sulfate (Iron) 325 Mg Tab 324 MG PO BID Take after a meal. Nutritional Supplement Ref 0 TAB Gabapentin (Gabapentin) 600 Mg Tab 600 MG PO TID #90 Ref 0 TAB Glimepiride (Glimepiride) 2 Mg Tab 2 MG PO BID Take with breakfast or first main meal Blood Sugar Management #30 Ref 0 TAB Lisinopril-Hctz (Lisinopril-Hctz) 10-12.5 Mg Tab 1 TAB PO DAILY Blood Pressure Management #30 Ref 0 TAB Pantoprazole (Pantoprazole) 40 Mg Tab 40 MG PO DAILY Reflux #30 Ref 0 TAB Promethazine (Phenergan) 25 Mg Tab 25 MG PO DAILY Nausea/Vomiting #1 Ref 0 TAB Sitagliptin-Metformin (Janumet) 50-1,000 Mg Tab 1 TAB PO BID Blood Sugar Management #60 Ref 0 TAB Tramadol HCl (Tramadol Hydrochloride) 50 Mg Tab 50 MG PO q6-8hrs Pain Management #30 TAB (This prescription has been renewed) Warfarin (Warfarin) 7.5 Mg Tab 7.5 MG PO DAILY Blood Clot Prevention #30 Ref 0 TAB Shabnam Monterroso MD April 07, 2017 07:15
[2017-04-07] MEDS: ESCITALOPRAM OXALATE 20 MG TAB PO SCH (08:18)
[2017-04-07] MEDS: LISINOPRIL 20 MG TAB PO SCH (08:18)
[2017-04-07] MEDS: HYDROCHLOROTHIAZIDE 25 MG TAB PO SCH (08:18)
[2017-04-07] MEDS: GABAPENTIN 300 MG CAP PO SCH ×2 (08:19→13:00)
[2017-04-07] MEDS: GLIMEPIRIDE 2 MG TAB PO SCH (08:19)
[2017-04-07] MEDS: DOCUSATE SODIUM 100 MG CAP PO SCH (08:19)
[2017-04-07] MEDS: ASPIRIN EC 81 MG TABEC PO SCH (08:19)
[2017-04-07] MEDS: CARVEDILOL 6.25 MG TAB PO SCH (08:19)
[2017-04-07] MEDS: SODIUM CHLORIDE 0.9% FLUSH 10 ML FLUSH IV FLUSH SCH (08:19)
[2017-04-07] MEDS: FAMOTIDINE 20 MG TAB PO SCH (08:19)
--- NOTE | 2017-04-07 08:26 | PD.VS.PN ---
Subjective POD #: 6 Procedure(s): L iliofem, fem-AT (cryo), excision of bypass, re-do bypass Subjective/Hospital Course walked to RN station independently ready to go home INR 2.0 today Objective Vitals/I&O Date Time Temp Pulse Resp B/P Pulse Ox O2 Delivery O2 Flow Rate FiO2 04/07/17 05:00 58 04/07/17 04:00 60 04/07/17 04:00 98.6 62 16 148/73 98 04/07/17 03:00 60 04/07/17 02:00 64 04/07/17 01:00 66 04/07/17 00:00 66 04/07/17 00:00 98.7 64 16 166/82 98 04/06/17 23:00 64 04/06/17 22:00 74 04/06/17 21:00 76 04/06/17 20:00 60 04/06/17 19:40 98.7 65 16 147/57 98 04/06/17 19:00 63 04/06/17 18:00 67 04/06/17 17:00 63 04/06/17 16:00 63 04/06/17 15:00 98.3 62 18 151/75 98 04/06/17 15:00 62 04/06/17 14:00 62 04/06/17 13:00 56 04/06/17 12:00 60 04/06/17 11:00 98.5 59 17 139/68 98 04/06/17 11:00 60 04/06/17 10:06 18 04/06/17 10:00 64 04/06/17 09:00 70 04/07/17 04/07/17 04/07/17 07:00 15:00 23:00 Intake Total 240 ml Output Total 1500 ml Balance -1260 ml Exam: all incisions look good foot slightly edematous, expected palpable graft pulse foot warm Laboratory Laboratory Tests Test 04/07/17 06:20 White Blood Count 8.5 Red Blood Count 3.45 Hemoglobin 7.9 Hematocrit 25.2 Mean Corpuscular Volume 73.0 Mean Corpuscular Hemoglobin 23.0 Mean Corpuscular Hemoglobin 31.5 Concent Red Cell Distribution Width 21.3 Platelet Count 318 Mean Platelet Volume 9.3 Prothrombin Time 22.6 Prothromb Time International 2.0 Ratio Activated Partial 36.5 Thromboplast Time Assessment and Plan Plan 1. therapeutic on coumadin - stopped therapeutic lovenox today 2. Ready for d/c 3. RTC next Fri with ABIs - will arrange. Discharge Planning today with home PT Abram Kessler MD April 07, 2017 08:26
--- NOTE | 2017-04-07 08:56 | HHI.FF ---
Face to Face Verification Diagnosis: (1) HTN (hypertension) (2) DM (diabetes mellitus) (3) PAD (peripheral artery disease) Physical Therapy Order: Evaluate and Treat Home Health Nursing Order: Medical education Signs/symptoms of disease process Diabetic education Medication education-adverse effect Nursing assessment with vital signs I have seen patient Nancy Cao on 04/07/17. My clinical findings support the need for the requested home health care services because: Ltd mobility - disease progression Deconditioned w/ increased weakness I certify that my clinical findings support that this patient is homebound because: Post-op weakness Shabnam Monterroso MD April 07, 2017 08:56
[2017-04-07] MEDS: LACTIC ACID (AMMONIUM LACTATE) 12% LOTION 225 GM BTL TOPICAL SCH (09:00)
== END 2017-04-07 14:00 | disposition home health service (06) | DRG 253 ==
LOC: NEPC 14:22 → NEDA 17:13 → N05B 21:26 → HCIS 04-01 13:20 → HCIN 04-01 15:49
PROVIDERS: ADMIT Hospitalist; ATTEND Hospitalist
PROC: B41D1ZZ Fluoroscopy of Aorta and Bilateral Lower Extremity Arteries using Low Osmolar Contrast (ICD-10-PCS; 2017-03-27)
PROC: 041L0KQ Bypass Left Femoral Artery to Lower Extremity Artery with Nonautologous Tissue Substitute, Open Approach (ICD-10-PCS; 2017-04-01)
PROC: 04PY07Z Removal of Autologous Tissue Substitute from Lower Artery, Open Approach (ICD-10-PCS; 2017-04-01)
PROC: 041L0JQ Bypass Left Femoral Artery to Lower Extremity Artery with Synthetic Substitute, Open Approach (ICD-10-PCS; principal; 2017-04-01 08:36)
DX: I73.9 Peripheral vascular disease, unspecified (principal); T82.858A Stenosis of other vascular prosthetic devices, implants and grafts, initial encounter; E11.40 Type 2 diabetes mellitus with diabetic neuropathy, unspecified; L03.116 Cellulitis of left lower limb; N18.3 Chronic kidney disease, stage 3 (moderate); I12.9 Hypertensive chronic kidney disease with stage 1 through stage 4 chronic kidney disease, or unspecified chronic kidney disease; I25.10 Atherosclerotic heart disease of native coronary artery without angina pectoris; D50.9 Iron deficiency anemia, unspecified; K21.9 Gastro-esophageal reflux disease without esophagitis; R20.0 Anesthesia of skin; E78.5 Hyperlipidemia, unspecified; I99.8 Other disorder of circulatory system; F32.9 Major depressive disorder, single episode, unspecified; F41.9 Anxiety disorder, unspecified; Y83.2 Surgical operation with anastomosis, bypass or graft as the cause of abnormal reaction of the patient, or of later complication, without mention of misadventure at the time of the procedure; Z86.711 Personal history of pulmonary embolism; Z79.01 Long term (current) use of anticoagulants; Z79.84 Long term (current) use of oral hypoglycemic drugs; Z83.3 Family history of diabetes mellitus; Z82.49 Family history of ischemic heart disease and other diseases of the circulatory system; Z86.718 Personal history of other venous thrombosis and embolism; Z86.73 Personal history of transient ischemic attack (TIA), and cerebral infarction without residual deficits; Z87.891 Personal history of nicotine dependence; Z88.5 Allergy status to narcotic agent; Z95.5 Presence of coronary angioplasty implant and graft
CPT/HCPCS: 36200; 36246; 71010; 75625; 75710; 76937; 80048; 80053; 82728; 82805; 82948; 83540; 83550; 83735; 85014; 85018; 85025; 85027; 85610; 85730; 86850; 86900; 86901; 86920; 87070; 87107; 87153; 87205; 93005; 93922; 93970; 93998; C1757; C1893; J0690; J1170; J1644; J1650; J1756; J1815; J2250; J2370; J2405; J2710; J2720; J3010; J3370; J7030; J7040; J7050; J7120; J7121; L3260; L8670; Q9967